=== PATIENT | male | born 1965 | race Caucasian/White ===

== ENCOUNTER 2018-05-02 09:10 | Day surgery (SDC) | payer MEDICAID ==
[~2018-05-02 09:10] MED LIST: CETI-102 PO; DOXY100C43 PO; FERR-119 PO; LISI-600 PO; MUPI22OI30 TOP
[2018-05-02] MEDS ORDERED: LIDOcaine/PRILOcaine 5gm cream TP ONE (11:02)
[2018-05-02] MEDS ORDERED: LISI40TA4 PO (11:50)
[2018-05-02] MEDS ORDERED: HYDR-3686 PO (11:51)
== END 2018-05-02 12:01 | disposition home or self-care (01) ==
LOC: WOUND CARE 09:10
PROVIDERS: ATTEND Surgery
DX: L98.422 Non-pressure chronic ulcer of back with fat layer exposed (principal); L72.3 Sebaceous cyst; I10 Essential (primary) hypertension; G89.29 Other chronic pain; Z79.899 Other long term (current) drug therapy
CPT/HCPCS: 97597; A6021; A6212

== ENCOUNTER 2018-05-09 09:05 | Outpatient (CLI) | payer MEDICAID ==
[~2018-05-09 09:05] MED LIST changes: -CETI-102 PO; -DOXY100C43 PO; -FERR-119 PO; +HYDR-3686 PO; -LISI-600 PO; +LISI40TA4 PO; -MUPI22OI30 TOP
== END 2018-05-09 10:29 | disposition home or self-care (01) ==
LOC: WOUND CARE 09:05 → EDSTATUS 09:30 → WOUND CARE 10:29
PROVIDERS: ATTEND Surgery
DX: L98.422 Non-pressure chronic ulcer of back with fat layer exposed (principal); L72.3 Sebaceous cyst; I10 Essential (primary) hypertension; G89.29 Other chronic pain; Z79.899 Other long term (current) drug therapy
CPT/HCPCS: 99215; A6021; A6212

== ENCOUNTER 2018-09-07 09:47 | Emergency (ER) | payer MEDICAID ==
[~2018-09-07] VITALS: Ht 185.4 cm; Wt 90.5 kg
[2018-09-07 10:10] VITALS: BP 120/65
[2018-09-07] MEDS ORDERED: GUAI237S46 PO (11:46)
[2018-09-07] MEDS ORDERED: AZIT250T83 PO (11:46)
[2018-09-07] MEDS ORDERED: buprenorphine/naloxone 8mg/2mg SL tablet SL PRN (13:10)
== END 2018-09-07 13:26 | disposition home or self-care (01) ==
LOC: ER 09:47
DX: J20.9 Acute bronchitis, unspecified (principal); I10 Essential (primary) hypertension; G89.29 Other chronic pain; F11.90 Opioid use, unspecified, uncomplicated; Z88.6 Allergy status to analgesic agent; Z60.2 Problems related to living alone; Z59.0 Homelessness; Z56.0 Unemployment, unspecified; Z79.899 Other long term (current) drug therapy
CPT/HCPCS: 99283

== ENCOUNTER 2019-05-18 10:56 | Emergency (ER) | payer MEDICAID ==
[~2019-05-18] VITALS: Ht 188 cm; Wt 79.5 kg
[2019-05-18 10:59] VITALS: BP 132/83
[2019-05-18] MEDS ORDERED: PENI500T2 PO (12:45)
== END 2019-05-18 13:03 | disposition home or self-care (01) ==
LOC: ER 10:57
DX: S02.5XXA Fracture of tooth (traumatic), initial encounter for closed fracture (principal); K02.9 Dental caries, unspecified; I10 Essential (primary) hypertension; G89.29 Other chronic pain; Z86.14 Personal history of Methicillin resistant Staphylococcus aureus infection; Z98.890 Other specified postprocedural states; Z56.0 Unemployment, unspecified; Z59.0 Homelessness; Z88.5 Allergy status to narcotic agent; Z79.2 Long term (current) use of antibiotics; Z79.899 Other long term (current) drug therapy; X58.XXXA Exposure to other specified factors, initial encounter; Y93.89 Activity, other specified; Y92.89 Other specified places as the place of occurrence of the external cause; Y99.8 Other external cause status
CPT/HCPCS: 99283

== ENCOUNTER 2019-05-28 17:21 | Emergency (ER) | payer MEDICAID ==
[~2019-05-28 17:21] MED LIST changes: +PENI500T2 PO
[2019-05-28] MEDS ORDERED: PENI500T2 PO (23:07)
== END 2019-05-28 18:52 | disposition left against medical advice (07) ==
LOC: ER 17:22
DX: K08.89 Other specified disorders of teeth and supporting structures (principal); Z53.21 Procedure and treatment not carried out due to patient leaving prior to being seen by health care provider

== ENCOUNTER 2019-05-28 22:04 | Emergency (ER) | payer MEDICAID ==
[~2019-05-28] VITALS: Ht 185.4 cm; Wt 79.5 kg
[2019-05-28 22:07] VITALS: BP 161/84
[2019-05-28] MEDS ORDERED: PENI500T2 PO (23:07)
[2019-05-28] MEDS ORDERED: penicillin V potassium 500mg tablet PO ONE (23:10)
== END 2019-05-28 23:22 | disposition home or self-care (01) ==
LOC: ER 22:06
DX: K02.9 Dental caries, unspecified (principal); K08.89 Other specified disorders of teeth and supporting structures; I10 Essential (primary) hypertension; G89.29 Other chronic pain; Z59.0 Homelessness; Z56.0 Unemployment, unspecified; Z98.890 Other specified postprocedural states; Z86.14 Personal history of Methicillin resistant Staphylococcus aureus infection; Z88.5 Allergy status to narcotic agent; Z79.899 Other long term (current) drug therapy
CPT/HCPCS: 99283

== ENCOUNTER 2019-06-25 09:30 | Emergency (ER) | payer MEDICAID ==
[~2019-06-25] VITALS: Ht 185.4 cm; Wt 79.5 kg
[~2019-06-25 09:30] MED LIST changes: -PENI500T2 PO
[2019-06-25 10:21] LABS: BASOPHILS # (AUTO) 0.1 X10'3 (0-0.2); BASOPHILS % (AUTO) 0.7 % (0-1); EOSINOPHILS # (AUTO) 0.1 X10'3 (0-0.9); EOSINOPHILS % (AUTO) 1.2 % (0-6); HEMATOCRIT 38.2 % (42.0-52.0); HEMOGLOBIN 13.1 g/dl (14.0-17.9); LYMPHOCYTES # (AUTO) 1.8 X10'3 (1.1-4.8); LYMPHOCYTES % (AUTO) 19.3 % (21-51); MEAN CORPUSCULAR HEMOGLOBIN 30.4 PG (27.0-31.0); MEAN CORPUSCULAR HGB CONC 34.3 g/dL (33.0-36.5); MEAN CORPUSCULAR VOLUME 88.6 FL (78-98); MEAN PLATELET VOLUME 8.4 FL (7.4-10.4); MONOCYTES # (AUTO) 0.8 X10'3 (0-0.9); MONOCYTES % (AUTO) 8.5 % (2-12); NEUTROPHILS # (AUTO) 6.7 X10'3 (1.8-7.7); NEUTROPHILS % (AUTO) 70.3 % (42-75); PLATELET COUNT 186 X10'3 (140-440); RED BLOOD COUNT 4.31 X10'6 (4.70-6.10); RED CELL DISTRIBUTION WIDTH 13.6 % (11.5-14.5); WHITE BLOOD COUNT 9.5 X10'3 (4.5-11.0)
[2019-06-25] MEDS ORDERED: lisinopril 10 MG tablet PO ONE (10:25)
[2019-06-25 10:40] LABS: PARTIAL THROMBOPLASTIN TIME 26 SECONDS (22-32)
[2019-06-25 10:41] LABS: ALANINE AMINOTRANSFERASE 37 U/L (12-78); ALBUMIN 3.9 G/DL (3.4-5.0); ALBUMIN/GLOBULIN RATIO 1.2 (1.1-1.5); ALKALINE PHOSPHATASE 56 IU/L (46-116); ANION GAP 7 (8-16); ASPARTATE AMINO TRANSFERASE 69 U/L (10-37); BILIRUBIN,TOTAL 0.5 MG/DL (0.1-1.0); BLOOD UREA NITROGEN 16 MG/DL (7-18); BUN/CREATININE RATIO 14.5 (5.4-32.0); CALCIUM 9.1 MG/DL (8.5-10.1); CHLORIDE 103 MMOL/L (99-107); GLUCOSE 99 MG/DL (70-104); POTASSIUM 4.2 MMOL/L (3.5-5.1); SODIUM 138 MMOL/L (135-145); TOTAL CARBON DIOXIDE 28.1 MMOL/L (24-32); TOTAL PROTEIN 7.2 G/DL (6.4-8.2); eGFR 69 ML/MIN
--- NOTE | 2019-06-25 12:00 | NUR ---
PT was in the restroom well over half an hour. I was directed by the charge master coordinator to check on him and check his bags. After checking on him, I went through his bags. My initial search found; a meth pipe, suboxone & meth. Security was called and the drugs were collected. Pt was asked by multiple staff as to whether or not he used in the bathroom. He declined everytime.
--- NOTE | 2019-06-25 12:11 | NUR ---
PT REPORTS HE ALREADY WENT TOT HE BATHROOM AND DID NOT GIVE URINE SAMPLE. PT PROVIDED WITH URINAL AND GLASS OF WATER.
--- NOTE | 2019-06-25 12:35 | NUR ---
Spoke with FANNY soriano regarding patients irregular heart rhythm of janiny. EKG in progress. Vital signs are as follows 105 beats/min, 186/108 mmHg, 17 breaths/min, 99 % RA.
[2019-06-25 13:33] LABS: CLARITY,URINE CLEAR (Clear); COLOR,URINE YELLOW (Yellow); GLUCOSE, URINE NEGATIVE (Neg); KETONES,URINE TRACE mg/dl (Neg); LEUKOCYTE ESTERASE ,URINE NEGATIVE (Neg); NITRITES, URINE NEGATIVE (Neg); OCCULT BLOOD,URINE SMALL (Neg); PROTEIN,URINE TRACE mg/dl (Neg); UROBILINOGEN,URINE 0.2 E.U/dL (0.2-1.0)
[2019-06-25 13:36] LABS: UA COLLECTION TYPE VOIDED
[2019-06-25 13:48] LABS: SPERM MODERATE /HPF (NEGATIVE); URINE AMPHETAMINE SCREEN POSITIVE (Neg); URINE BARBITUATE SCREEN NEGATIVE (Neg); URINE BENZODIAZEPINES SCREEN NEGATIVE (Neg); URINE CANNABINOID SCREEN NEGATIVE (Neg); URINE COCAINE SCREEN NEGATIVE (Neg); URINE METHADONE SCREEN NEGATIVE (Neg); URINE OPIATE SCREEN NEGATIVE (Neg); URINE PHENCYCLIDINE SCREEN NEGATIVE (Neg)
[2019-06-25 13:49] LABS: SQUAMOUS EPITHELIAL CELL,UR FEW /LPF (FEW); WBC,URINE 0-4 /HPF (0-4)
[2019-06-25 13:50] LABS: BACTERIA,URINE FEW /HPF (Neg)
[2019-06-25] MEDS ORDERED: hyDRALAzine 10mg tablet PO ONE (14:25)
[2019-06-25] MEDS ORDERED: normal saline 1000ML IV soln IVB ONE (14:45)
[2019-06-25] MEDS ORDERED: LISI40TA4 PO (16:18)
[2019-06-25 17:00] VITALS: BP 177/107
== END 2019-06-25 17:03 | disposition home or self-care (01) ==
LOC: ER 09:31
DX: T68.XXXA Hypothermia, initial encounter (principal); I10 Essential (primary) hypertension; F19.10 Other psychoactive substance abuse, uncomplicated; G89.29 Other chronic pain; R79.1 Abnormal coagulation profile; F11.90 Opioid use, unspecified, uncomplicated; Z98.890 Other specified postprocedural states; Z60.2 Problems related to living alone; Z59.0 Homelessness; Z56.0 Unemployment, unspecified; Z88.6 Allergy status to analgesic agent; Z79.899 Other long term (current) drug therapy; Z86.718 Personal history of other venous thrombosis and embolism; X31.XXXA Exposure to excessive natural cold, initial encounter
CPT/HCPCS: 36415; 80053; 80305; 81001; 83880; 85025; 85610; 85730; 93005; 99284; J7030

== ENCOUNTER 2019-08-06 11:05 | Emergency (ER) | payer MEDICAID ==
[~2019-08-06] VITALS: Ht 185.4 cm; Wt 82.0 kg
[2019-08-06 11:26] VITALS: BP 170/92
[2019-08-06] MEDS ORDERED: buprenorphine/naloxone 8mg/2mg SL tablet SL STA (13:07)
[2019-08-06] MEDS ORDERED: buprenorphine/naloxone 8MG-2MG SUBlingual film SL STA (14:47)
[2019-08-06] MEDS ORDERED: BUPR1TAB36 SL (14:52)
== END 2019-08-06 15:01 | disposition home or self-care (01) ==
LOC: ER 11:06
DX: F11.90 Opioid use, unspecified, uncomplicated (principal); Z76.0 Encounter for issue of repeat prescription; I10 Essential (primary) hypertension; G89.29 Other chronic pain; Z59.0 Homelessness; Z56.0 Unemployment, unspecified; Z86.14 Personal history of Methicillin resistant Staphylococcus aureus infection; Z88.5 Allergy status to narcotic agent; Z79.899 Other long term (current) drug therapy
CPT/HCPCS: 99283

== ENCOUNTER 2019-08-10 19:41 | Emergency (ER) | payer MEDICAID ==
[~2019-08-10] VITALS: Ht 185.4 cm; Wt 79.5 kg
[~2019-08-10 19:41] MED LIST changes: +BUPR1TAB36 SL
--- NOTE | 2019-08-10 19:47 | NUR ---
PT IN BATHROOM WHEN CALLED BACK TO TRIAGE
[2019-08-10 19:51] VITALS: BP 140/85
[2019-08-10] MEDS ORDERED: AMOX-422 PO (20:32)
== END 2019-08-10 20:44 | disposition home or self-care (01) ==
LOC: ER 19:41
DX: J40 Bronchitis, not specified as acute or chronic (principal); J06.9 Acute upper respiratory infection, unspecified; I10 Essential (primary) hypertension; G89.29 Other chronic pain; Z79.2 Long term (current) use of antibiotics; Z79.899 Other long term (current) drug therapy; Z86.14 Personal history of Methicillin resistant Staphylococcus aureus infection; Z60.2 Problems related to living alone; Z59.0 Homelessness; Z56.0 Unemployment, unspecified
CPT/HCPCS: 99283

== ENCOUNTER 2019-08-27 16:17 | Emergency (ER) | payer MEDICAID ==
[~2019-08-27] VITALS: Ht 185.4 cm; Wt 81.0 kg
[2019-08-27] MEDS ORDERED: MUPI22OI30 TOP (16:48)
[2019-08-27 16:58] VITALS: BP 132/71
== END 2019-08-27 17:01 | disposition home or self-care (01) ==
LOC: ER 16:19
DX: J34.89 Other specified disorders of nose and nasal sinuses (principal); I10 Essential (primary) hypertension; G89.29 Other chronic pain; Z59.0 Homelessness; Z56.0 Unemployment, unspecified; Z86.14 Personal history of Methicillin resistant Staphylococcus aureus infection; Z88.5 Allergy status to narcotic agent; Z79.899 Other long term (current) drug therapy
CPT/HCPCS: 99283

== ENCOUNTER 2019-09-08 20:12 | Emergency (ER) | payer MEDICAID ==
--- NOTE | 2019-09-08 20:20 | NUR ---
Pt reportedly told triage he will return in the morning and does not want to be seen tonight.
== END 2019-09-08 20:55 | disposition left against medical advice (07) ==
LOC: ER 20:13
DX: J00 Acute nasopharyngitis [common cold] (principal); Z53.21 Procedure and treatment not carried out due to patient leaving prior to being seen by health care provider

== ENCOUNTER 2019-09-10 02:10 | Emergency (ER) | payer MEDICAID ==
[~2019-09-10] VITALS: Ht 185.4 cm; Wt 88.6 kg
[2019-09-10 02:27] VITALS: BP 183/117
--- NOTE | 2019-09-10 02:38 | NUR ---
PT IS USING A TABLET THE ENTIRE TIME I AM ASKING QUESTIONS AND DOING EXAM/HISTORY. NO DISTRESS NOTED.
[2019-09-10] MEDS ORDERED: amox tr/potassium clavulanate 875/125mg TAB PO ONE (03:00)
[2019-09-10] MEDS ORDERED: naproxen 500mg tablet PO ONE (03:00)
[2019-09-10] MEDS ORDERED: AMOX-422 PO (03:04)
[2019-09-10] MEDS ORDERED: NAPR-56 PO (03:04)
[2019-09-10] MEDS: acetaminophen 325mg tablet PO ONE ×2 (03:11→03:13)
== END 2019-09-10 03:33 | disposition home or self-care (01) ==
LOC: ER 02:11
DX: K04.7 Periapical abscess without sinus (principal); K08.89 Other specified disorders of teeth and supporting structures; I10 Essential (primary) hypertension; G89.29 Other chronic pain; F15.90 Other stimulant use, unspecified, uncomplicated; F11.90 Opioid use, unspecified, uncomplicated; Z98.890 Other specified postprocedural states; Z86.14 Personal history of Methicillin resistant Staphylococcus aureus infection; Z60.2 Problems related to living alone; Z59.0 Homelessness; Z56.0 Unemployment, unspecified; Z88.5 Allergy status to narcotic agent; Z79.2 Long term (current) use of antibiotics; Z79.899 Other long term (current) drug therapy
CPT/HCPCS: 99283

== ENCOUNTER 2019-09-19 15:52 | Emergency (ER) | payer MEDICAID ==
[~2019-09-19] VITALS: Ht 188 cm; Wt 80.0 kg
[~2019-09-19 15:52] MED LIST changes: +AMOX-422 PO; +NAPR-56 PO
--- NOTE | 2019-09-19 16:18 | NUR ---
pt called into triage and pt said he had to leave
[2019-09-19 17:13] VITALS: BP 144/89
[2019-09-19] MEDS ORDERED: ketorolac trometh inj. 60 MG/2 ML VIAL IM ONE (19:25)
== END 2019-09-19 19:58 | disposition home or self-care (01) ==
LOC: ER 15:56
DX: M79.18 Myalgia, other site (principal); R06.00 Dyspnea, unspecified; I10 Essential (primary) hypertension; G89.29 Other chronic pain; F15.90 Other stimulant use, unspecified, uncomplicated; F11.90 Opioid use, unspecified, uncomplicated; Z86.14 Personal history of Methicillin resistant Staphylococcus aureus infection; Z86.2 Personal history of diseases of the blood and blood-forming organs and certain disorders involving the immune mechanism; Z59.0 Homelessness; Z56.0 Unemployment, unspecified; Z88.1 Allergy status to other antibiotic agents; Z88.5 Allergy status to narcotic agent; Z79.899 Other long term (current) drug therapy
CPT/HCPCS: 96372; 99283; J1885

== ENCOUNTER 2019-09-24 15:45 | Emergency (ER) | payer MEDICAID ==
[~2019-09-24] VITALS: Ht 185.4 cm; Wt 80.0 kg
[~2019-09-24 15:45] MED LIST changes: -AMOX-422 PO
[2019-09-24 15:47] VITALS: BP 180/104
[2019-09-24] MEDS ORDERED: DIPH25CA83 PO (16:04)
[2019-09-24] MEDS ORDERED: FAMO10TA41 PO (16:04)
== END 2019-09-24 16:34 | disposition home or self-care (01) ==
LOC: ER 15:46
DX: L23.7 Allergic contact dermatitis due to plants, except food (principal); I10 Essential (primary) hypertension; G89.29 Other chronic pain; F15.90 Other stimulant use, unspecified, uncomplicated; F11.90 Opioid use, unspecified, uncomplicated; Z59.0 Homelessness; Z56.0 Unemployment, unspecified; Z98.890 Other specified postprocedural states; Z86.14 Personal history of Methicillin resistant Staphylococcus aureus infection; Z88.1 Allergy status to other antibiotic agents; Z88.5 Allergy status to narcotic agent; Z79.899 Other long term (current) drug therapy
CPT/HCPCS: 99283

== ENCOUNTER 2019-10-03 06:30 | Emergency (ER) | payer MEDICAID ==
[~2019-10-03] VITALS: Ht 185.4 cm; Wt 82.2 kg
[~2019-10-03 06:30] MED LIST changes: -BUPR1TAB36 SL; +BUPR1TAB45 SL; +CLOT30CR24 TOP; +DIPH25CA83 PO; +FAMO10TA41 PO
[2019-10-03] MEDS ORDERED: naproxen 500mg tablet PO ONE (07:50)
[2019-10-03 07:52] VITALS: BP 168/95
== END 2019-10-03 09:24 | disposition home or self-care (01) ==
LOC: ER 06:30
DX: G89.29 Other chronic pain (principal); M54.6 Pain in thoracic spine; I10 Essential (primary) hypertension; F15.90 Other stimulant use, unspecified, uncomplicated; F11.90 Opioid use, unspecified, uncomplicated; F32.9 Major depressive disorder, single episode, unspecified; Z86.14 Personal history of Methicillin resistant Staphylococcus aureus infection; Z59.0 Homelessness; Z98.890 Other specified postprocedural states; Z60.2 Problems related to living alone; Z56.0 Unemployment, unspecified; Z86.2 Personal history of diseases of the blood and blood-forming organs and certain disorders involving the immune mechanism; Z88.1 Allergy status to other antibiotic agents; Z88.5 Allergy status to narcotic agent; Z79.899 Other long term (current) drug therapy
CPT/HCPCS: 99282

== ENCOUNTER 2019-10-07 00:52 | Emergency (ER) | payer MEDICAID ==
[~2019-10-07] VITALS: Ht 185.4 cm; Wt 82.8 kg
[2019-10-07 00:57] VITALS: BP 140/75
[2019-10-07] MEDS ORDERED: buprenorphine/naloxone 8MG-2MG SUBlingual film SL SCH (02:55)
[2019-10-07] MEDS ORDERED: buprenorphine/naloxone 8MG-2MG SUBlingual film SL ONE (02:55)
== END 2019-10-07 03:11 | disposition home or self-care (01) ==
LOC: ER 00:53
DX: F11.10 Opioid abuse, uncomplicated (principal); I10 Essential (primary) hypertension; G89.29 Other chronic pain; F32.9 Major depressive disorder, single episode, unspecified; F15.90 Other stimulant use, unspecified, uncomplicated; Z86.14 Personal history of Methicillin resistant Staphylococcus aureus infection; Z98.890 Other specified postprocedural states; Z60.2 Problems related to living alone; Z59.0 Homelessness; Z56.0 Unemployment, unspecified; Z88.1 Allergy status to other antibiotic agents; Z88.5 Allergy status to narcotic agent; Z79.2 Long term (current) use of antibiotics; Z79.899 Other long term (current) drug therapy
CPT/HCPCS: 99283

== ENCOUNTER 2019-10-08 21:23 | Emergency (ER) | payer MEDICAID ==
[~2019-10-08] VITALS: Ht 185.4 cm; Wt 79.5 kg
[2019-10-08] MEDS ORDERED: buprenorphine/naloxone 8MG-2MG SUBlingual film SL STA (22:01)
[2019-10-08 22:24] VITALS: BP 125/78
== END 2019-10-08 22:25 | disposition home or self-care (01) ==
LOC: ER 21:24
DX: F11.10 Opioid abuse, uncomplicated (principal); I10 Essential (primary) hypertension; G89.29 Other chronic pain; F15.90 Other stimulant use, unspecified, uncomplicated; F32.9 Major depressive disorder, single episode, unspecified; Z86.14 Personal history of Methicillin resistant Staphylococcus aureus infection; Z98.890 Other specified postprocedural states; Z60.2 Problems related to living alone; Z59.0 Homelessness; Z56.0 Unemployment, unspecified
CPT/HCPCS: 99283

== ENCOUNTER 2019-10-21 21:03 | Emergency (ER) | payer MEDICAID ==
[~2019-10-21] VITALS: Ht 185.4 cm; Wt 88.6 kg
[~2019-10-21 21:03] MED LIST changes: -NAPR-56 PO
[2019-10-21 21:11] VITALS: BP 160/108
[2019-10-21] MEDS ORDERED: HYDR28CR14 TOP (21:42)
[2019-10-21] MEDS ORDERED: PERM60CR19 TOP (21:42)
== END 2019-10-21 21:53 | disposition home or self-care (01) ==
LOC: ER 21:21
DX: B85.1 Pediculosis due to Pediculus humanus corporis (principal); I10 Essential (primary) hypertension; G89.29 Other chronic pain; F15.90 Other stimulant use, unspecified, uncomplicated; F11.90 Opioid use, unspecified, uncomplicated; Z59.0 Homelessness; Z56.0 Unemployment, unspecified; Z98.890 Other specified postprocedural states; Z86.14 Personal history of Methicillin resistant Staphylococcus aureus infection; Z88.1 Allergy status to other antibiotic agents; Z88.5 Allergy status to narcotic agent; Z79.899 Other long term (current) drug therapy
CPT/HCPCS: 99283

== ENCOUNTER 2019-11-01 00:04 | Emergency (ER) | payer MEDICAID ==
[~2019-11-01] VITALS: Ht 185.4 cm; Wt 88.0 kg
[~2019-11-01 00:04] MED LIST changes: +HYDR28CR14 TOP; +PERM60CR19 TOP
[2019-11-01 00:21] VITALS: BP 138/97
[2019-11-01] MEDS ORDERED: PENI500T2 PO (00:35)
== END 2019-11-01 00:44 | disposition home or self-care (01) ==
LOC: ER 00:04
DX: K02.9 Dental caries, unspecified (principal); I10 Essential (primary) hypertension; G89.29 Other chronic pain; F32.9 Major depressive disorder, single episode, unspecified; F15.90 Other stimulant use, unspecified, uncomplicated; F11.90 Opioid use, unspecified, uncomplicated; Z86.2 Personal history of diseases of the blood and blood-forming organs and certain disorders involving the immune mechanism; Z86.14 Personal history of Methicillin resistant Staphylococcus aureus infection; Z98.890 Other specified postprocedural states; Z60.2 Problems related to living alone; Z59.0 Homelessness; Z56.0 Unemployment, unspecified; Z88.1 Allergy status to other antibiotic agents; Z88.5 Allergy status to narcotic agent; Z79.899 Other long term (current) drug therapy
CPT/HCPCS: 99283

== ENCOUNTER 2019-12-07 23:05 | Emergency (ER) | payer MEDICAID ==
[~2019-12-07] VITALS: Ht 185.4 cm; Wt 82.0 kg
[~2019-12-07 23:05] MED LIST changes: -PERM60CR19 TOP
[2019-12-07 23:12] VITALS: BP 171/103
[2019-12-08] MEDS ORDERED: LISI40TA4 PO (00:04)
== END 2019-12-08 00:18 | disposition home or self-care (01) ==
LOC: ER 23:06
DX: I10 Essential (primary) hypertension (principal); Z76.0 Encounter for issue of repeat prescription; G89.29 Other chronic pain; F32.9 Major depressive disorder, single episode, unspecified; F15.90 Other stimulant use, unspecified, uncomplicated; F11.90 Opioid use, unspecified, uncomplicated; Z98.890 Other specified postprocedural states; Z86.14 Personal history of Methicillin resistant Staphylococcus aureus infection; Z56.0 Unemployment, unspecified; Z59.0 Homelessness; Z88.1 Allergy status to other antibiotic agents; Z88.5 Allergy status to narcotic agent; Z79.899 Other long term (current) drug therapy
CPT/HCPCS: 99281

== ENCOUNTER 2020-02-21 21:44 | Emergency (ER) | payer MEDICAID ==
[~2020-02-21] VITALS: Ht 185.4 cm; Wt 102.3 kg
[2020-02-21 21:57] VITALS: BP 137/83
[2020-02-22] MEDS ORDERED: penicillin V potassium 500mg tablet PO ONE (01:30)
[2020-02-22] MEDS ORDERED: PENI500T2 PO (01:33)
== END 2020-02-22 01:55 | disposition home or self-care (01) ==
LOC: ER 21:48
DX: K04.7 Periapical abscess without sinus (principal); I10 Essential (primary) hypertension; G89.29 Other chronic pain; F15.90 Other stimulant use, unspecified, uncomplicated; Z59.0 Homelessness; Z56.0 Unemployment, unspecified; Z98.890 Other specified postprocedural states; Z86.14 Personal history of Methicillin resistant Staphylococcus aureus infection; Z88.1 Allergy status to other antibiotic agents; Z88.5 Allergy status to narcotic agent; Z79.899 Other long term (current) drug therapy
CPT/HCPCS: 99283

== ENCOUNTER 2021-09-01 23:37 | Emergency (ER) | payer MEDICAID ==
[~2021-09-01] VITALS: Ht 185.4 cm; Wt 100.0 kg
[~2021-09-01 23:37] MED LIST changes: +LISI40TA13 PO; -LISI40TA4 PO
[2021-09-01 23:46] VITALS: BP 165/100
[2021-09-01] MEDS ORDERED: LISI40TA13 PO (23:52)
== END 2021-09-02 01:27 | disposition home or self-care (01) ==
LOC: ER 23:38
DX: I10 Essential (primary) hypertension (principal); G89.29 Other chronic pain; F15.90 Other stimulant use, unspecified, uncomplicated; Z76.0 Encounter for issue of repeat prescription; Z86.14 Personal history of Methicillin resistant Staphylococcus aureus infection; Z86.2 Personal history of diseases of the blood and blood-forming organs and certain disorders involving the immune mechanism; Z56.0 Unemployment, unspecified; Z59.00 Homelessness unspecified; Z88.1 Allergy status to other antibiotic agents; Z88.5 Allergy status to narcotic agent; Z88.8 Allergy status to other drugs, medicaments and biological substances; Z79.899 Other long term (current) drug therapy
CPT/HCPCS: 99281

== ENCOUNTER 2021-09-08 20:04 | Emergency (ER) | payer MEDICAID ==
[~2021-09-08] VITALS: Ht 182.9 cm; Wt 100.0 kg
[2021-09-08 20:32] VITALS: BP 196/113
== END 2021-09-08 22:45 | disposition left against medical advice (07) ==
LOC: ER 20:05
DX: K92.1 Melena (principal); Z53.21 Procedure and treatment not carried out due to patient leaving prior to being seen by health care provider

== ENCOUNTER 2022-05-02 22:25 | Emergency (ER) | payer MEDICAID ==
[~2022-05-02] VITALS: Ht 185.4 cm; Wt 81.8 kg
[~2022-05-02 22:25] MED LIST changes: +IBUP-1985 PO
[2022-05-02 23:10] VITALS: BP_DIAS 121
[2022-05-02] MEDS ORDERED: lisinopril 10 MG tablet PO ONE (23:40)
[2022-05-02] MEDS ORDERED: LISI40TA13 PO (23:40)
[2022-05-03 00:09] VITALS: BP_SYST 205
== END 2022-05-03 00:13 | disposition home or self-care (01) ==
LOC: ER 22:26
DX: I10 Essential (primary) hypertension (principal); Z76.0 Encounter for issue of repeat prescription; D64.9 Anemia, unspecified; G89.29 Other chronic pain; M54.9 Dorsalgia, unspecified; F15.10 Other stimulant abuse, uncomplicated; Z59.00 Homelessness unspecified; Z56.0 Unemployment, unspecified; Z88.1 Allergy status to other antibiotic agents; Z88.5 Allergy status to narcotic agent; Z79.899 Other long term (current) drug therapy
CPT/HCPCS: 99283

== ENCOUNTER 2022-06-01 00:34 | Emergency (ER) | payer MEDICAID ==
[~2022-06-01] VITALS: Ht 185.4 cm; Wt 81.8 kg
[2022-06-01 00:40] VITALS: BP_DIAS 113
[2022-06-01] MEDS ORDERED: lisinopril 10 MG tablet PO ONE (00:55)
[2022-06-01] MEDS ORDERED: LISI40TA13 PO (00:56)
[2022-06-01 01:07] VITALS: BP_SYST 172
--- NOTE | 2022-06-01 01:08 | NUR ---
PO MED GIVEN
[2022-06-02] MEDS ORDERED: DICL20GE TOP (23:39)
[2022-06-02] MEDS ORDERED: NAPR-56 PO (23:39)
== END 2022-06-01 01:10 | disposition home or self-care (01) ==
LOC: ER 00:35
DX: R51.9 Headache, unspecified (principal); Z76.0 Encounter for issue of repeat prescription; I10 Essential (primary) hypertension; G89.29 Other chronic pain; M54.50 Low back pain, unspecified; F15.20 Other stimulant dependence, uncomplicated; Z88.1 Allergy status to other antibiotic agents; Z88.5 Allergy status to narcotic agent; Z91.041 Radiographic dye allergy status; Z56.0 Unemployment, unspecified; Z59.00 Homelessness unspecified
CPT/HCPCS: 99283

== ENCOUNTER 2022-06-02 23:09 | Emergency (ER) | payer MEDICAID ==
[~2022-06-02] VITALS: Ht 185.4 cm; Wt 84.1 kg
[2022-06-02 23:13] VITALS: BP 200/116
[2022-06-02] MEDS ORDERED: NAPR-56 PO (23:39)
[2022-06-02] MEDS ORDERED: DICL20GE TOP (23:39)
== END 2022-06-03 01:12 | disposition home or self-care (01) ==
LOC: ER 23:11
DX: S56.911A Strain of unspecified muscles, fascia and tendons at forearm level, right arm, initial encounter (principal); I10 Essential (primary) hypertension; G89.29 Other chronic pain; M54.50 Low back pain, unspecified; F15.20 Other stimulant dependence, uncomplicated; Z88.1 Allergy status to other antibiotic agents; Z88.5 Allergy status to narcotic agent; Z91.041 Radiographic dye allergy status; Z56.0 Unemployment, unspecified; Z59.00 Homelessness unspecified; X58.XXXA Exposure to other specified factors, initial encounter; Y93.89 Activity, other specified; Y92.89 Other specified places as the place of occurrence of the external cause; Y99.8 Other external cause status
CPT/HCPCS: 73080; 99283

== ENCOUNTER 2022-06-24 05:46 | Emergency (ER) | payer MEDICAID ==
[~2022-06-24] VITALS: Ht 185.4 cm; Wt 80.5 kg
[~2022-06-24 05:46] MED LIST changes: +DICL20GE TOP; +NAPR-56 PO
[2022-06-24 05:57] VITALS: BP 174/100
[2022-06-24] MEDS ORDERED: AZIT250T PO (06:54)
[2022-06-24] MEDS ORDERED: azithromycin 250mg tablet PO ONE (06:55)
== END 2022-06-24 07:45 | disposition home or self-care (01) ==
LOC: ER 05:46
DX: J06.9 Acute upper respiratory infection, unspecified (principal); Z91.041 Radiographic dye allergy status; Z88.1 Allergy status to other antibiotic agents; Z88.5 Allergy status to narcotic agent
CPT/HCPCS: 99283

== ENCOUNTER 2022-07-26 15:59 | Emergency (ER) | payer MEDICAID ==
[~2022-07-26] VITALS: Ht 185.4 cm; Wt 80.0 kg
[~2022-07-26 15:59] MED LIST changes: -NAPR-56 PO
[2022-07-26] MEDS ORDERED: LISI40TA13 PO (17:28)
[2022-07-26 17:41] VITALS: BP 153/113
== END 2022-07-26 17:44 | disposition home or self-care (01) ==
LOC: ER 16:00
DX: I10 Essential (primary) hypertension (principal); Z76.0 Encounter for issue of repeat prescription; G89.29 Other chronic pain; M54.2 Cervicalgia; F15.10 Other stimulant abuse, uncomplicated; Z86.2 Personal history of diseases of the blood and blood-forming organs and certain disorders involving the immune mechanism; Z59.00 Homelessness unspecified; Z56.0 Unemployment, unspecified; Z88.1 Allergy status to other antibiotic agents; Z88.5 Allergy status to narcotic agent; Z79.899 Other long term (current) drug therapy; Z79.1 Long term (current) use of non-steroidal anti-inflammatories (NSAID); Z79.2 Long term (current) use of antibiotics
CPT/HCPCS: 99281

== ENCOUNTER 2022-08-03 04:21 | Emergency (ER) | payer MEDICAID ==
[~2022-08-03] VITALS: Ht 182.9 cm; Wt 70.5 kg
[2022-08-03 04:34] VITALS: BP 170/84
== END 2022-08-03 08:17 | disposition left against medical advice (07) ==
LOC: ER 04:21
DX: R05.9 Cough, unspecified (principal); R09.89 Other specified symptoms and signs involving the circulatory and respiratory systems; Z53.21 Procedure and treatment not carried out due to patient leaving prior to being seen by health care provider

== ENCOUNTER 2022-08-04 01:15 | Emergency (ER) | payer MEDICAID ==
[~2022-08-04] VITALS: Ht 193 cm; Wt 72.7 kg
[2022-08-04 02:27] VITALS: BP 175/98
== END 2022-08-04 06:57 | disposition left against medical advice (07) ==
LOC: ER 01:16
DX: M79.671 Pain in right foot (principal); Z53.21 Procedure and treatment not carried out due to patient leaving prior to being seen by health care provider

== ENCOUNTER 2022-08-04 14:10 | Emergency (ER) | payer MEDICAID ==
[~2022-08-04] VITALS: Ht 185.4 cm; Wt 38.6 kg
[2022-08-04 15:16] VITALS: BP 203/111
== END 2022-08-04 17:46 | disposition left against medical advice (07) ==
LOC: ER 14:11
DX: S01.81XA Laceration without foreign body of other part of head, initial encounter (principal); Z53.21 Procedure and treatment not carried out due to patient leaving prior to being seen by health care provider; I10 Essential (primary) hypertension; G89.29 Other chronic pain; M54.9 Dorsalgia, unspecified; F32.A Depression, unspecified; Z59.00 Homelessness unspecified; Z56.0 Unemployment, unspecified; F15.10 Other stimulant abuse, uncomplicated; Z88.1 Allergy status to other antibiotic agents; Z88.5 Allergy status to narcotic agent; W18.39XA Other fall on same level, initial encounter; Y93.89 Activity, other specified; Y92.89 Other specified places as the place of occurrence of the external cause; Y99.8 Other external cause status

== ENCOUNTER 2022-08-04 21:33 | Emergency (ER) | payer MEDICAID ==
[~2022-08-04] VITALS: Ht 185.4 cm; Wt 84.1 kg
[2022-08-05 01:17] VITALS: BP 188/79
[2022-08-05] MEDS ORDERED: acetaminophen 325mg tablet PO ONE (02:00)
== END 2022-08-05 02:32 | disposition home or self-care (01) ==
LOC: ER 21:34
DX: M54.2 Cervicalgia (principal); S01.01XA Laceration without foreign body of scalp, initial encounter; I10 Essential (primary) hypertension; G89.29 Other chronic pain; M54.50 Low back pain, unspecified; Z88.1 Allergy status to other antibiotic agents; Z88.5 Allergy status to narcotic agent; Z91.041 Radiographic dye allergy status; Z59.00 Homelessness unspecified; Z56.0 Unemployment, unspecified; W19.XXXA Unspecified fall, initial encounter; Y93.89 Activity, other specified; Y92.89 Other specified places as the place of occurrence of the external cause; Y99.8 Other external cause status
CPT/HCPCS: 12001; 70450; 72125; 99284; A6446; A6449

== ENCOUNTER 2022-08-06 22:30 | Emergency (ER) | payer MEDICAID ==
[~2022-08-06] VITALS: Ht 185.4 cm; Wt 84.1 kg
[2022-08-06 22:59] VITALS: BP 165/89
== END 2022-08-07 02:54 | disposition left against medical advice (07) ==
LOC: ER 22:31
DX: M54.2 Cervicalgia (principal); Z53.21 Procedure and treatment not carried out due to patient leaving prior to being seen by health care provider

== ENCOUNTER 2022-08-08 02:00 | Emergency (ER) | payer MEDICAID ==
[~2022-08-08] VITALS: Ht 185.4 cm; Wt 81.5 kg
[2022-08-08 02:11] VITALS: BP 187/96
== END 2022-08-08 03:11 | disposition left against medical advice (07) ==
LOC: ER 02:01
DX: L29.9 Pruritus, unspecified (principal); Z53.21 Procedure and treatment not carried out due to patient leaving prior to being seen by health care provider

== ENCOUNTER 2023-01-30 19:59 | Emergency (ER) | payer MEDICAID ==
[~2023-01-30] VITALS: Ht 185.4 cm; Wt 84.1 kg
[~2023-01-30 19:59] MED LIST changes: +CEPH-585 PO; +CYCL-1 PO; +IBUP-1986 PO; +LORA10TA65 PO
[2023-01-30 20:15] VITALS: BP 149/88
[2023-01-30] MEDS ORDERED: SULF1TAB49 PO (20:51)
[2023-01-30] MEDS ORDERED: bacitracin 15gm ointment TP ONE (20:55)
== END 2023-01-30 21:29 | disposition home or self-care (01) ==
LOC: ER 19:59
DX: S50.911A Unspecified superficial injury of right forearm, initial encounter (principal); L03.113 Cellulitis of right upper limb; I10 Essential (primary) hypertension; G89.29 Other chronic pain; Z86.14 Personal history of Methicillin resistant Staphylococcus aureus infection; F15.90 Other stimulant use, unspecified, uncomplicated; Z56.0 Unemployment, unspecified; Z59.00 Homelessness unspecified; Z88.1 Allergy status to other antibiotic agents; Z88.8 Allergy status to other drugs, medicaments and biological substances; Z88.5 Allergy status to narcotic agent; Z79.2 Long term (current) use of antibiotics; Z79.899 Other long term (current) drug therapy; X58.XXXA Exposure to other specified factors, initial encounter; Y93.89 Activity, other specified; Y92.89 Other specified places as the place of occurrence of the external cause; Y99.8 Other external cause status
CPT/HCPCS: 99283

== ENCOUNTER 2023-03-15 22:04 | Emergency (ER) | payer MEDICAID ==
[~2023-03-15] VITALS: Ht 185.4 cm; Wt 84.1 kg
[2023-03-15 22:14] VITALS: TEMP 97
[2023-03-15] MEDS ORDERED: DOXYCYCLINE 100MG CAPSULE PO STA (23:10)
[2023-03-15] MEDS ORDERED: lisinopril 10 MG tablet PO ONE (23:10)
[2023-03-15] MEDS ORDERED: LISI40TA13 PO (23:13)
[2023-03-15] MEDS ORDERED: DOXY-135 PO (23:13)
[2023-03-15 23:23] VITALS: BP_DIAS 89; RESP 12; O2SAT 99
[2023-03-15 23:26] VITALS: BP_SYST 143; PULSE 80
== END 2023-03-15 23:29 | disposition home or self-care (01) ==
LOC: ER 22:05
DX: L03.113 Cellulitis of right upper limb (principal); I10 Essential (primary) hypertension; F15.90 Other stimulant use, unspecified, uncomplicated; Z91.041 Radiographic dye allergy status; Z88.1 Allergy status to other antibiotic agents; Z88.5 Allergy status to narcotic agent; Z79.899 Other long term (current) drug therapy; Z79.2 Long term (current) use of antibiotics
CPT/HCPCS: 99283

== ENCOUNTER 2023-06-01 23:29 | Emergency (ER) | payer MEDICAID ==
[~2023-06-01] VITALS: Ht 185.4 cm; Wt 74.5 kg
[2023-06-01 23:40] VITALS: RESP 16
[2023-06-02] MEDS ORDERED: LISI10TA27 PO (00:13)
[2023-06-02 00:26] VITALS: BP 158/96; PULSE 80; TEMP 98.1; O2SAT 98
== END 2023-06-02 00:28 | disposition home or self-care (01) ==
LOC: ER 23:30
DX: I10 Essential (primary) hypertension (principal); G89.29 Other chronic pain; F15.90 Other stimulant use, unspecified, uncomplicated; Z56.0 Unemployment, unspecified; Z59.00 Homelessness unspecified; Z98.890 Other specified postprocedural states; Z88.8 Allergy status to other drugs, medicaments and biological substances; Z88.1 Allergy status to other antibiotic agents; Z88.5 Allergy status to narcotic agent; Z79.2 Long term (current) use of antibiotics; Z79.899 Other long term (current) drug therapy
CPT/HCPCS: 99283

== ENCOUNTER 2023-07-05 23:25 | Emergency (ER) | payer MEDICAID ==
[~2023-07-05] VITALS: Ht 185.4 cm; Wt 77.3 kg
[~2023-07-05 23:25] MED LIST changes: +LISI10TA27 PO
[2023-07-05] MEDS ORDERED: LISI20TA28 PO (23:33)
[2023-07-05] MEDS ORDERED: lisinopril 10 MG tablet PO ONE (23:35)
[2023-07-05 23:46] VITALS: BP 156/90; PULSE 82; RESP 16; TEMP 98.9; O2SAT 99
== END 2023-07-05 23:47 | disposition home or self-care (01) ==
LOC: ER 23:26
DX: I10 Essential (primary) hypertension (principal); Z76.0 Encounter for issue of repeat prescription
CPT/HCPCS: 99281; 99283

== ENCOUNTER 2023-09-24 22:48 | Emergency (ER) | payer MEDICAID ==
[~2023-09-24] VITALS: Ht 185.4 cm; Wt 79.5 kg
[2023-09-24 22:52] VITALS: BP 162/87; PULSE 74; RESP 18; TEMP 97.7; O2SAT 97
[2023-09-25] MEDS ORDERED: LISI40TA13 PO (00:46)
== END 2023-09-25 00:58 | disposition home or self-care (01) ==
LOC: ER 22:49
DX: I10 Essential (primary) hypertension (principal); Z76.0 Encounter for issue of repeat prescription; F32.A Depression, unspecified; F15.90 Other stimulant use, unspecified, uncomplicated; Z59.00 Homelessness unspecified; Z56.0 Unemployment, unspecified
CPT/HCPCS: 99281

== ENCOUNTER 2023-10-20 23:55 | Emergency (ER) | payer MEDICAID ==
[~2023-10-20] VITALS: Ht 185.4 cm; Wt 81.8 kg
[2023-10-21 00:10] VITALS: BP 152/88; PULSE 73; RESP 18; TEMP 98.4; O2SAT 97
[2023-10-21] MEDS ORDERED: ENAL20TA75 PO (00:45)
[2023-10-21] MEDS ORDERED: LISI40TA13 PO (00:45)
[2023-10-21] MEDS ORDERED: DOXY-356 PO (00:45)
== END 2023-10-21 01:08 | disposition home or self-care (01) ==
LOC: ER 23:56
DX: L03.114 Cellulitis of left upper limb (principal); I10 Essential (primary) hypertension; G89.29 Other chronic pain; F32.9 Major depressive disorder, single episode, unspecified; F15.90 Other stimulant use, unspecified, uncomplicated; Z86.14 Personal history of Methicillin resistant Staphylococcus aureus infection; Z98.890 Other specified postprocedural states; Z60.2 Problems related to living alone; Z59.00 Homelessness unspecified; Z56.0 Unemployment, unspecified; Z76.0 Encounter for issue of repeat prescription; Z88.1 Allergy status to other antibiotic agents; Z88.5 Allergy status to narcotic agent; Z88.8 Allergy status to other drugs, medicaments and biological substances; Z79.899 Other long term (current) drug therapy
CPT/HCPCS: 99281; 99283

== ENCOUNTER 2024-03-31 21:49 | Emergency (ER) | payer MEDICAID ==
[~2024-03-31] VITALS: Ht 185.4 cm; Wt 80.2 kg
[~2024-03-31 21:49] MED LIST changes: -CEPH-585 PO
[2024-03-31 22:11] VITALS: BP 160/89; PULSE 56; RESP 16; TEMP 98.1; O2SAT 99
[2024-03-31] MEDS ORDERED: LISI40TA13 PO (22:49)
== END 2024-03-31 23:04 | disposition home or self-care (01) ==
LOC: ER 21:50
DX: I10 Essential (primary) hypertension (principal); Z76.0 Encounter for issue of repeat prescription; D64.9 Anemia, unspecified; G89.29 Other chronic pain; M54.9 Dorsalgia, unspecified; F15.90 Other stimulant use, unspecified, uncomplicated; Z88.1 Allergy status to other antibiotic agents; Z88.8 Allergy status to other drugs, medicaments and biological substances; Z79.899 Other long term (current) drug therapy; Z79.1 Long term (current) use of non-steroidal anti-inflammatories (NSAID); Z98.890 Other specified postprocedural states; Z59.00 Homelessness unspecified; Z56.0 Unemployment, unspecified; Z60.2 Problems related to living alone
CPT/HCPCS: 99281

== ENCOUNTER 2024-05-12 18:15 | Emergency (ER) | payer MEDICAID ==
[~2024-05-12] VITALS: Ht 185.4 cm; Wt 77.3 kg
[2024-05-12 18:16] VITALS: TEMP 98.2
[2024-05-12] MEDS ORDERED: LISI40TA13 PO (18:27)
[2024-05-12 18:40] VITALS: BP_DIAS 98; RESP 16; O2SAT 97
[2024-05-12 18:41] VITALS: BP_SYST 141; PULSE 83
[2024-05-12] MEDS: lisinopril 10 MG tablet PO ONE (18:41)
== END 2024-05-12 18:46 | disposition home or self-care (01) ==
LOC: ER 18:15
DX: Z76.0 Encounter for issue of repeat prescription (principal); I10 Essential (primary) hypertension; G89.29 Other chronic pain; F32.A Depression, unspecified; F15.90 Other stimulant use, unspecified, uncomplicated; Z88.1 Allergy status to other antibiotic agents; Z88.5 Allergy status to narcotic agent; Z88.8 Allergy status to other drugs, medicaments and biological substances; Z91.041 Radiographic dye allergy status; Z79.899 Other long term (current) drug therapy; Z79.1 Long term (current) use of non-steroidal anti-inflammatories (NSAID)
CPT/HCPCS: 99283

== ENCOUNTER 2024-08-31 20:00 | Emergency (ER) | payer MEDICAID ==
[~2024-08-31] VITALS: Ht 185.4 cm; Wt 63.4 kg
[2024-08-31] MEDS: ibuprofen tablet 400 MG TABLET PO ONE (20:33)
[2024-08-31] MEDS: acetaminophen 325mg tablet PO ONE (20:33)
[2024-08-31 20:43] LABS: BASOPHILS % (AUTO) 0.7 % (0-1); EOSINOPHILS # (AUTO) 0.2 X10'3 (0-0.9); HEMATOCRIT 30.2 % (42.0-52.0); HEMOGLOBIN 10.5 g/dl (14.0-17.9); LYMPHOCYTES # (AUTO) 0.8 X10'3 (1.1-4.8); LYMPHOCYTES % (AUTO) 16.7 % (21-51); MEAN CORPUSCULAR HEMOGLOBIN 30.8 PG (27.0-31.0); MEAN CORPUSCULAR HGB CONC 34.6 g/dL (33.0-36.5); MEAN PLATELET VOLUME 7.6 FL (7.4-10.4); MONOCYTES # (AUTO) 0.6 X10'3 (0-0.9); MONOCYTES % (AUTO) 12.3 % (2-12); NEUTROPHILS # (AUTO) 2.9 X10'3 (1.8-7.7); NEUTROPHILS % (AUTO) 65.3 % (42-75); PLATELET COUNT 171 X10'3 (140-440); RED BLOOD COUNT 3.39 X10'6 (4.70-6.10); RED CELL DISTRIBUTION WIDTH 14.3 % (11.5-14.5); WHITE BLOOD COUNT 4.5 X10'3 (4.5-11.0)
[2024-08-31 21:02] LABS: ALANINE AMINOTRANSFERASE 28 U/L (12-78); ALBUMIN 3.5 G/DL (3.4-5.0); ALBUMIN/GLOBULIN RATIO 0.9 (1.1-1.5); ALKALINE PHOSPHATASE 59 IU/L (46-116); ANION GAP 1 (8-16); ASPARTATE AMINO TRANSFERASE 43 U/L (10-37); BILIRUBIN,TOTAL 0.3 MG/DL (0.1-1.0); BLOOD UREA NITROGEN 24 MG/DL (7-18); CALCIUM 8.9 MG/DL (8.5-10.1); CHLORIDE 104 MMOL/L (99-107); CREATININE 1.09 MG/DL (0.60-1.10); GLUCOSE 96 MG/DL (70-104); POTASSIUM 4.2 MMOL/L (3.5-5.1); SODIUM 140 MMOL/L (135-145); TOTAL CARBON DIOXIDE 34.8 MMOL/L (24-32); TOTAL PROTEIN 7.2 G/DL (6.4-8.2); eCRCL 65 ML/MIN; eGFR 69 ML/MIN
[2024-08-31 23:32] LABS: BILIRUBIN,URINE NEGATIVE (Neg); CLARITY,URINE CLEAR (Clear); COLOR,URINE YELLOW (Yellow); GLUCOSE, URINE NEGATIVE (Neg); KETONES,URINE NEGATIVE (Neg); LEUKOCYTE ESTERASE ,URINE NEGATIVE (Neg); NITRITES, URINE NEGATIVE (Neg); OCCULT BLOOD,URINE NEGATIVE (Neg); PROTEIN,URINE NEGATIVE (Neg)
[2024-08-31 23:33] VITALS: TEMP 98.7
[2024-08-31 23:48] LABS: UA COLLECTION TYPE CLN CATCH MIDSTREAM
[2024-09-01 01:23] VITALS: BP 158/89; PULSE 63; RESP 16; O2SAT 98
== END 2024-09-01 01:27 | disposition home or self-care (01) ==
LOC: ER 20:00
DX: R35.0 Frequency of micturition (principal); I10 Essential (primary) hypertension; F15.90 Other stimulant use, unspecified, uncomplicated; G89.29 Other chronic pain; M54.9 Dorsalgia, unspecified; F32.A Depression, unspecified; Z88.1 Allergy status to other antibiotic agents; Z88.5 Allergy status to narcotic agent; Z88.6 Allergy status to analgesic agent; Z79.899 Other long term (current) drug therapy; Z98.890 Other specified postprocedural states; Z56.0 Unemployment, unspecified; Z59.00 Homelessness unspecified; Z60.2 Problems related to living alone; Z20.822 Contact with and (suspected) exposure to COVID-19
CPT/HCPCS: 36415; 74176; 80053; 81003; 85025; 87502; 87503; 87811; 99284

== ENCOUNTER 2024-09-14 20:11 | Emergency (ER) | payer MEDICAID ==
[~2024-09-14] VITALS: Ht 185.4 cm; Wt 58.1 kg
[2024-09-14 20:17] VITALS: RESP 15
[2024-09-14] MEDS ORDERED: CETI10TA14 PO (23:28)
== END 2024-09-14 23:34 | disposition home or self-care (01) ==
LOC: ER 20:11
DX: R09.89 Other specified symptoms and signs involving the circulatory and respiratory systems (principal); G89.29 Other chronic pain; I10 Essential (primary) hypertension; F15.90 Other stimulant use, unspecified, uncomplicated; Z88.1 Allergy status to other antibiotic agents; Z88.3 Allergy status to other anti-infective agents; Z88.5 Allergy status to narcotic agent; Z88.6 Allergy status to analgesic agent; Z88.8 Allergy status to other drugs, medicaments and biological substances; Z79.899 Other long term (current) drug therapy
CPT/HCPCS: 99282

== ENCOUNTER 2024-10-01 15:27 | Emergency (ER) | payer MEDICAID ==
[~2024-10-01] VITALS: Ht 185.4 cm; Wt 81.5 kg
[~2024-10-01 15:27] MED LIST changes: +CETI10TA14 PO
[2024-10-01] MEDS ORDERED: SULF1TAB49 PO (15:51)
[2024-10-01] MEDS ORDERED: CEPH-585 PO (15:51)
[2024-10-01] MEDS: sulfamethoxazole/trimethoprim DS (800/160mg) tablet PO ONE (16:03)
[2024-10-01] MEDS: CefTRIAXone 1000mg IM Kit (w/lidocaine diluent) IM ONE (16:05)
[2024-10-01 16:14] VITALS: BP 129/63; PULSE 80; RESP 16; TEMP 99.3; O2SAT 99
== END 2024-10-01 16:16 | disposition home or self-care (01) ==
LOC: ER 15:28
DX: S80.922A Unspecified superficial injury of left lower leg, initial encounter (principal); L03.116 Cellulitis of left lower limb; I10 Essential (primary) hypertension; Z88.5 Allergy status to narcotic agent; Z88.1 Allergy status to other antibiotic agents; Z88.8 Allergy status to other drugs, medicaments and biological substances; F32.A Depression, unspecified; X58.XXXA Exposure to other specified factors, initial encounter; Y93.89 Activity, other specified; Y92.89 Other specified places as the place of occurrence of the external cause; Y99.8 Other external cause status
CPT/HCPCS: 96372; 99283; J0696

== ENCOUNTER 2024-10-17 22:49 | Emergency (ER) | payer MEDICAID ==
[~2024-10-17] VITALS: Ht 185.4 cm; Wt 82.3 kg
[2024-10-18] MEDS ORDERED: CLIN-214 PO (00:32)
[2024-10-18] MEDS: clindamycin 150mg capsule PO ONE (00:42)
[2024-10-18 01:15] VITALS: BP 148/80; PULSE 79; RESP 18; TEMP 98.6; O2SAT 99
== END 2024-10-18 01:17 | disposition home or self-care (01) ==
LOC: ER 22:50
DX: L03.116 Cellulitis of left lower limb (principal); I10 Essential (primary) hypertension; F32.A Depression, unspecified; F15.90 Other stimulant use, unspecified, uncomplicated; Z88.5 Allergy status to narcotic agent; Z88.1 Allergy status to other antibiotic agents; Z88.8 Allergy status to other drugs, medicaments and biological substances; Z98.890 Other specified postprocedural states
CPT/HCPCS: 99283

== ENCOUNTER 2024-11-10 19:57 | Emergency (ER) | payer MEDICAID ==
[~2024-11-10 19:57] MED LIST changes: +CLIN-214 PO
== END 2024-11-10 20:32 | disposition left against medical advice (07) ==
LOC: ER 19:58
DX: B85.1 Pediculosis due to Pediculus humanus corporis (principal); Z53.21 Procedure and treatment not carried out due to patient leaving prior to being seen by health care provider; Z88.1 Allergy status to other antibiotic agents; Z88.5 Allergy status to narcotic agent

== ENCOUNTER 2024-12-24 20:28 | Inpatient (IN) | payer MEDICAID ==
[~2024-12-24] VITALS: Ht 185.4 cm; Wt 83.0 kg
[2024-12-24 21:14] LABS: BASOPHILS # (AUTO) 0.1 X10'3 (0-0.2); BASOPHILS % (AUTO) 0.7 % (0-1); EOSINOPHILS # (AUTO) 0.3 X10'3 (0-0.9); HEMOGLOBIN 9.7 g/dl (14.0-17.9); LYMPHOCYTES # (AUTO) 1.2 X10'3 (1.1-4.8); LYMPHOCYTES % (AUTO) 14.2 % (21-51); MEAN CORPUSCULAR HEMOGLOBIN 28.6 PG (27.0-31.0); MEAN CORPUSCULAR HGB CONC 33.4 g/dL (33.0-36.5); MEAN CORPUSCULAR VOLUME 85.7 FL (78-98); MEAN PLATELET VOLUME 7.7 FL (7.4-10.4); MONOCYTES # (AUTO) 0.8 X10'3 (0-0.9); MONOCYTES % (AUTO) 10.3 % (2-12); NEUTROPHILS # (AUTO) 5.8 X10'3 (1.8-7.7); NEUTROPHILS % (AUTO) 70.8 % (42-75); PLATELET COUNT 194 X10'3 (140-440); RED BLOOD COUNT 3.38 X10'6 (4.70-6.10); WHITE BLOOD COUNT 8.2 X10'3 (4.5-11.0)
[2024-12-24 21:29] LABS: ALANINE AMINOTRANSFERASE 26 U/L (12-78); ALBUMIN 3.2 G/DL (3.4-5.0); ALBUMIN/GLOBULIN RATIO 0.7 (1.1-1.5); ALKALINE PHOSPHATASE 69 IU/L (46-116); ANION GAP 5 (8-16); ASPARTATE AMINO TRANSFERASE 23 U/L (10-37); BILIRUBIN,TOTAL 0.5 MG/DL (0.1-1.0); BLOOD UREA NITROGEN 28 MG/DL (7-18); BUN/CREATININE RATIO 22.2 (10.0-20.0); CALCIUM 8.8 MG/DL (8.5-10.1); CHLORIDE 103 MMOL/L (99-107); CREATININE 1.26 MG/DL (0.60-1.10); GLUCOSE 101 MG/DL (70-104); POTASSIUM 3.8 MMOL/L (3.5-5.1); SODIUM 137 MMOL/L (135-145); TOTAL CARBON DIOXIDE 29.3 MMOL/L (24-32); TOTAL PROTEIN 7.6 G/DL (6.4-8.2); eCRCL 70 ML/MIN; eGFR 58 ML/MIN
--- NOTE | 2024-12-24 21:30 | Physician Documentation ---
History of Present Illness ~ Chief Complaint: Abscess Stated Complaint: LEG INFECTION Time Seen by MD: 21:15 Primary Medical Doctor: None Mode of Arrival: POV HPI This is a 59-year-old gentleman with a known history of recurrent left lower extremity cellulitis and wound, currently not with the wound care, status post four rounds of antibiotics, comes in for evaluation of pain, swelling, erythema and calor to the left lower extremity for the last several days. No obvious trigger provocation. Does have chronic wound that isn't getting better. Did not attempt to treat it other than antibiotics above. Denies any other symptoms such as chest pain or difficulty breathing. He denies any concerns for tobacco, alcohol or illicit substances. Tetanus witin 5 years: Yes (2019) Medication Reconciliation Allergies: Coded Allergies: erythromycin base (Verified Allergy, Severe, 10/17/24) vancomycin (Verified Allergy, Severe, 10/17/24) codeine (Verified Allergy, Unknown, 10/17/24) morphine (Verified Allergy, Unknown, 10/17/24) Scheduled Buprenorphine HCl/Naloxone HCl (Buprenorphin-Naloxon 8-2 mg Tb), 1 TAB SL TID Cetirizine HCl (Cetirizine HCl), 1 TAB PO DAILY Clindamycin HCl (Clindamycin HCl CAPSULE), 1 CAP PO TID Clotrimazole (Clotrimazole), 1 APPLIC TOP Q12H Cyclobenzaprine* (Cyclobenzaprine*), 1 TAB PO Q8H Diclofenac Sodium (Voltaren Arthritis Pain), 1 APPLIC TOP BID Diphenhydramine HCl (Benadryl), 1 CAP PO HS Famotidine (Pepcid Ac), 1 TAB PO DAILY Hydrocortisone (hydrocortisone 1% cream), 1 APPLIC TOP Q12H Hydroxyzine Hcl* (Atarax*), Unknown Dose PO DAILY, (Reported) Ibuprofen (Ibuprofen), 1 TAB PO Q8H Ibuprofen (Ibuprofen), 1 TAB PO Q8H Lisinopril (Lisinopril), 1 TAB PO DAILY Lisinopril* (Lisinopril*), 1 TAB PO DAILY Loratadine (Claritin), 1 TAB PO DAILY Past Medical History Past Medical History: Vertigo, Hypertension, Anemia, Chronic Pain, Chronic Back Pain, MRSA Abscess, Depression Past Surgical History: orthopedic surgeries Alcohol Use: None Drug Use: methamphetamine Lives with: Alone Lives In: Homeless Occupation: unemployed Review of Systems ROS 10 point review of systems was performed and unless noted above in HPI is negative for acute process/complaint. Physical Exam Vital Signs: Temperature: 99.2, Source: Oral, Heart Rate: 69, Respiratory Rate: 12, BP: 127/65, Pulse Oximetry: 96, Weight: 83.000 Oxygen Flow Rate: 0 Physical Exam GENERAL: Awake, alert, oriented, GCS 15, no apparent distress, non-toxic appearing, answers questions, follows commands appropriately. HEENT: Atraumatic, normocephalic, pupils equal, extraocular muscles intact, sclerae anicteric, mucus membranes moist, oropharynx is clear, no stridor. NECK: supple, full active range of motion, trachea midline, no thyromegaly, no lymphadenopathy, no JVD. CARDIOVASCULAR: regular rate/rhythm, no murmurs/gallops/rubs, Pulses are 2+ in all extremities and symmetric. Capillary refill less than 2 seconds. PULMONARY: Nonlabored, good air movement ,no respiratory distress, speaking in full sentences, clear to auscultation bilaterally, no wheezing, no ronchi, no rales, no accessory muscle use. GASTROINTESTINAL: Soft, non-tender, non-distended, normal active bowel sounds, no organomegaly, no pulsatile masses, no CVA tenderness. NEUROLOGIC: Lucid with normal mental status. Normal facial symmetry. Moves all extremities symmetrically and with purpose. No truncal ataxia. Speech is fluid without evidence of dysarthria or aphasia, no focal deficits appreciated. MUSCULOSKELETAL: There is full range of motion of all extremities. There is no joint pain or joint swelling or joint erythema. There is no muscle pain or tenderness or swelling. EXTREMITIES: warm, well-perfused, no cyanosis, no clubbing, no edema, no acute deformities. Skin: warm, dry, no rashes or lesions, no jaundice, no petechiae orpurpura. No ecchymosis. PSYCHIATRIC: Normal affect, normal insight, normal concentration. Focused exam: [] Left lower extremity is of markedly erythematous, swollen, tender to palpation reproducing chief complaint, there is a chronic appearing wound with some yellow discharge on the posterior aspect of his left calf, calor noted. Neurovascularly intact. The swelling now involves entire calf and anterior leg. Progress Results/Orders Results/Orders Orders - ASHWIN REED DO Culture Blood (12/24/24 20:47) Urinalysis, Cult If Indicated (12/24/24 20:47) Monitor (12/24/24 20:47) Saline Lock (12/24/24 20:47) Straight Cath For Urine Sample (12/24/24 20:47) Tib/Fib (12/24/24 ) Completed Orders - ASHWIN REED DO Cbc/Diff (12/24/24 20:47) Procalcitonin (12/24/24 20:47) CMP (12/24/24 20:47) Lacticsepsis (12/24/24 20:47) ESR (12/24/24 21:25) Piperacillin/Tazo 4.5gm/100ml (Zosyn 4.5 (12/24/24 21:25) Normal Saline 1000ml (Sodium Chloride 10 (12/24/24 21:25) Hs Troponin I W Calculations (12/24/24 21:25) Ketorolac Trometh 30mg/Ml Vial (Toradol (12/24/24 21:30) CK (12/24/24 21:03) C-Reactive Protein (12/24/24 21:03) Tib/Fib (12/24/24 ) Medications Received in ER Medications (Trade) Dose Ordered Sig/Pedro Route PRN Reason Start Time Stop Time Status Last Admin Dose Admin Piperacillin/ Tazobactam/ Dextrose 100 ml @ 100 mls/hr ONCE ONCE IV 12/24/24 21:25 12/24/24 22:24 DC 12/24/24 21:57 100 MLS/HR (sodium chloride 1000ml IV soln) 1,000 ml ONCE ONCE IVB 12/24/24 21:25 12/24/24 21:27 DC 12/24/24 21:57 1,000 ML (Toradol inj. 30mg/ml) 30 mg ONCE ONCE IV 12/24/24 21:30 12/24/24 21:32 DC 12/24/24 21:57 30 MG Vital Signs 12/24/24 12/24/24 12/24/24 12/24/24 20:36 21:17 21:20 21:57 Temp 99.2 99.2 Pulse 78 69 Resp 16 10 12 16 B/P (MAP) 130/75 127/65 (85) Pulse Ox 98 96 O2 Flow Rate 0 0 Laboratory Tests Test 12/24/24 21:03 White Blood Count 8.2 Red Blood Count 3.38 L Hemoglobin 9.7 L Hematocrit 29.0 L Mean Corpuscular Volume 85.7 Mean Corpuscular Hemoglobin 28.6 Mean Corpuscular Hemoglobin Concent 33.4 Red Cell Distribution Width 16.0 H Platelet Count 194 Mean Platelet Volume 7.7 Neutrophils (%) (Auto) 70.8 Lymphocytes (%) (Auto) 14.2 L Monocytes (%) (Auto) 10.3 Eosinophils (%) (Auto) 4.0 Basophils (%) (Auto) 0.7 Neutrophils # (Auto) 5.8 Lymphocytes # (Auto) 1.2 Monocytes # (Auto) 0.8 Eosinophils # (Auto) 0.3 Basophils # (Auto) 0.1 CBC Comment Erythrocyte Sedimentation Rate 41 H Sodium Level 137 Potassium Level 3.8 Chloride Level 103 Carbon Dioxide Level 29.3 Anion Gap 5 L Blood Urea Nitrogen 28 H Creatinine 1.26 H Estimated GFR/1.73 m2 58 BUN/Creatinine Ratio 22.2 H Glucose Level 101 Lactic Acid Level 1.3 Calcium Level 8.8 Total Bilirubin 0.5 Aspartate Amino Transf (AST/SGOT) 23 Alanine Aminotransferase (ALT/SGPT) 26 Alkaline Phosphatase 69 Total Creatine Kinase 201 Troponin I High Sensitivity 21 C-Reactive Protein 3.22 H Total Protein 7.6 Albumin 3.2 L Globulin 4.4 H Albumin/Globulin Ratio 0.7 L Procalcitonin 0.06 Chemistry Comments Medical Decision Making Findings Facility Status: ED Holds, [facility] process The plan was discussed with the patient, who demonstrates clear understanding of the plan and is in agreement with the plan unless otherwise noted in the chart. All questions have been answered, all concerns were addressed unless otherwise documented. I was available throughout their ED stay for frequent reassessment and que stions. Differential Diagnoses (considered and possible or likely): [Cellulitis, absc ess, necrotizing fasciitis, osteomyelitis, failure of outpatient treatment] ??Differential Diagnoses (considered and unlikely, not requiring evaluation currently): [See above] MDM Data Please see HPI for the following: Independent Historians and external Records Review. Historian: [Patient] Independent Historians: ?[Record review] Medication Management: [Reviewed medication list] Social History and determinants: [Reviewed] Please see the body of the note for the following: Any independent interpretations of ECG, imaging studies. All vitals signs/haemodynamics, ordered tests were independently reviewed and interpreted by myself. Nursing triage complaint and vitals reviewed, additional nursing notes were reviewed as available and I agree unless otherwise noted or documented in contradiction in the chart Vital Signs: Independently reviewed Labs: Independently interpreted Imaging: Independently interpreted Old Medical Records: Independently reviewed, see HPI for relevant summary and information Pulse Oximetry: [98%] interpreted as [normal on room air] by me [Board Certified Family Physician: [Regular Rate, Regular rhythm, no ectopy, NSR] reviewed and interpreted by me] Additionally notably showing: [Hemodynamically stable. Laboratory workup notable for elevated inflammatory markers. X-ray is unremarkable.] Tests considered but not ordered include: [Advanced imaging has been considerably but does not appear to be necessary] Social Determinants of Health Impact: Patient was evaluated in [facility], [facility] [place] to [facility] due to below par ratio of patient to medical providers. [] Comorbid Conditions Impacting Present Evaluation and Care/Treatment: [History of recurrent cellulitis] Management Discussions with other Healthcare Providers: [Hospitalist regarding admission] Treatment and Disposition Medication Management (Given or considered): [Fluids and antibiotics]. See EMR for details Consideration for Hospitalization/Escalation/Deescalation of Care: Admission for observation has been considered, and appears to be necessary for further management of his failure of outpatient treatment of his extensive cellulitis of left lower extremity ?ED Course:?[No clinical deterioration. Received antibiotics and pain management with the response.] ?Shared decision making:?[] Code status:?FULL Please see the full Electronic Medical Record for full details of nursing documentation, medications list, other records of complete past medical history and conditions, vital signs, laboratory studies, and any radiologic study interpretations by radiologists. Portions of this note were completed using [employer] dictation software and as a result there may exist minor errors in spelling. I have reviewed elements of past family and social history and agree as included in note. Departure Disposition: 09 ADMITTED INPATIENT Impression: Primary Impression: Cellulitis of left lower extremity Additional Impressions: Chronic wound of extremity Failure of outpatient treatment Condition: Improved Referrals: NO PRIMARY CARE PROVIDER (PCP) Signature Scribe Signature: No scribe Attestation: This note accurately reflects clinical decisions, work performed by myself, Ashwin Reed, ASHWIN BUENO DO Dec 24, 2024 21:30
[2024-12-24 21:54] LABS: C-REACTIVE PROTEIN 3.22 MG/DL (0.0-0.5); CREATINE KINASE 201 U/L (39-308)
[2024-12-24] MEDS: piperacillin/tazo 4.5gm/100ml 100 ML IV ONE (21:57)
[2024-12-24] MEDS: ketorolac trometh 30MG/ML vial 30 MG/ML VIAL IV ONE (21:57)
[2024-12-24] MEDS: normal saline 1000ML IV soln IVB ONE (21:57)
--- NOTE | 2024-12-24 22:05 | RADIOLOGY REPORT ---
CLINICAL INDICATION: Pain, swelling, Gas TECHNIQUE: DI TIB/FIB 2 VWS Comparison: None FINDINGS: No osseous or joint abnormality identified with no fracture or dislocation. Joint spaces are normal. Soft tissues appear unremarkable. Small enthesophyte noted at Achilles tendon insertion and small c alcaneal spur. IMPRESSION: No acute abnormality identified.
[2024-12-24] MEDS ORDERED: potassium Cl 20 mEq SR tablet PO PRN ×2 (23:20)
[2024-12-24] MEDS ORDERED: ondansetron/PF 4mg/2ml inj IV PRN (23:20)
[2024-12-24] MEDS ORDERED: acetaminophen 325mg tablet PO PRN (23:20)
[2024-12-24] MEDS ORDERED: magnesium sulf-water 4G/100mL 100 ML IV PRN (23:20)
[2024-12-24] MEDS ORDERED: potassium Cl 40MEQ/1/2NS 520ml 520 ML IV PRN (23:20)
[2024-12-24] MEDS ORDERED: magnesium Cl slow-release 64mg tablet PO PRN (23:20)
[2024-12-24] MEDS ORDERED: magnesium sulf-water 2g/50mL 50 ML IV PRN (23:20)
[2024-12-24] MEDS: normal saline 1000ml 1,000 ML IV SCH (23:29)
--- NOTE | 2024-12-24 23:39 | HISTORY AND PHYSICAL-Residence ---
History & Physical Providers to CC Resident Creating Document: AZULPADMAJAASHURIGOBERTO ~ History of Present Illness Primary Medical Doctor: None Reason for Admit\Complaint: cellulitis History of Present Illness The patient is a 59-year-old homeless male who presented to the emergency department with progressively worsening pain, swelling, and tenderness in his left lower extremity. He reports a chronic nonhealing wound that has been present since July of this year, for which he has received multiple course of oral antibiotics without improvement. The wound has progressively worsened despite these treatments. He also have history of methamphetamine use and reports having a MRSA infection on his back a few years ago. Allergies: Coded Allergies: erythromycin base (Verified Allergy, Severe, 10/17/24) vancomycin (Verified Allergy, Severe, 10/17/24) codeine (Verified Allergy, Unknown, 10/17/24) morphine (Verified Allergy, Unknown, 10/17/24) Home Medications Home Medications Active Clindamycin HCl CAPSULE (Clindamycin HCl) 150 Mg Capsule 1 Cap PO TID Cetirizine HCl 10 Mg Tablet 1 Tab PO DAILY 30 Days Lisinopril 10 Mg Tablet 1 Tab PO DAILY 30 Days Lisinopril* (Lisinopril) 40 Mg Tablet 1 Tab PO DAILY 90 Days Claritin (Loratadine) 10 Mg Tablet 1 Tab PO DAILY 30 Days Cyclobenzaprine* (Cyclobenzaprine HCl) 10 Mg Tablet 1 Tab PO Q8H 10 Days Ibuprofen 800 Mg Tablet 1 Tab PO Q8H 10 Days Voltaren Arthritis Pain (Diclofenac Sodium) 20 Gm Gel..gram. 1 Applic TOP BID Ibuprofen 600 Mg Tablet 1 Tab PO Q8H 10 Days hydrocortisone 1% cream (Hydrocortisone) 1 Applic Cream..g. 1 Applic TOP Q12H 10 Days Clotrimazole 30 Gm Cream..g. 1 Applic TOP Q12H 7 Days apply to affected area(s) Pepcid Ac (Famotidine) 10 Mg Tablet 1 Tab PO DAILY 30 Days Benadryl (Diphenhydramine HCl) 25 Mg Capsule 1 Cap PO HS 30 Days Buprenorphin-Naloxon 8-2 mg Tb (Buprenorphine HCl/Naloxone HCl) 1 Each Tab.subl 1 Tab SL TID 2 Days Reported Atarax* (Hydroxyzine HCl) Unknown Strength Tablet Unknown Dose PO DAILY Past Medical History Past Medical History Patient does not report any past medical history Past Surgical History Surgical History Comment No significant history Past Social History Social History Comment He has been homeless for the past 10 years, never smoked as claimed. Uses methamphetamine, last use three months ago. Denies consuming alcohol. Alcohol Use: None Drug Use: Methamphetamine Lives with: Alone Lives In: Homeless Occupation: unemployed ROS All Other Systems: Reviewed and Negative ROS As stated above in the HPI, otherwise all systems are reviewed and negative. Exam Vitals: Vital Signs Date Time Temp Pulse Resp B/P (MAP) Pulse Ox O2 Delivery O2 Flow Rate FiO2 12/24/24 21:57 16 12/24/24 21:20 12/24/24 21:17 99.2 69 96 0 General Appearance: Appears tired, dehydrated, unkempt HEENT: Atraumatic, normocephalic, MELE, EOMI. Normal oropharynx, moist oral mucosa. Neck: Trachea midline. Supple, normal ROM. No JVD, bruit, lymphadenopathy or masses, or other lesions. Respiratory: Chest wall is symmetric and without deformity. No signs of respiratory distress. Equal breath sounds bilaterally. No wheeze, rub, Rales or crackles. Cardiac: RRR, no murmur, rub or gallop. Normal S1 and S2. GI: No tenderness. Abdomen symmetric, nondistended, soft, normal bowel sounds x4 quadrant normoactive. No guarding, no rebound or rigidity. No hepatosplenomegaly. No masses, no bruit, no flank pain bilaterally. Extremities: 5 cm long and 3-1/2 cm wide wound with necrotic tissues, scars, and slow waves Skin: Intact, dry, warm, no rashes or petechia. Neuro: Speech is clear, alert and oriented x4. No sensory or motor deficit, DTRs normal. Cranial nerves II to XII intact. Psych: Normal affect, good eye contact, no apparent hallucination, normal speech. Diagnostic Data Last Recorded Lab Results: 12/24/24210212/24/242102 Advance Care Planning Advanced Care plannin - 30 Minutes Additional Plan Assessment and plan: The patient is a 59-year-old homeless male who presented to the emergency department with progressively worsening pain, swelling, and tenderness in his left lower extremity. He reports a chronic nonhealing wound that has been present since July of this year, for which he has received multiple course of oral antibiotics without improvement. Left lower extremity cellulitis Nonhealing wound History of MRSA infection and allergy to vancomycin Inflammatory markers including procalcitonin and CRP elevated, however, does not meet SIRS/sepsis criteria Wound is open with yellow slough, erythema, and swelling, but no evidence of necrotizing fasciitis at this time Started on IV linezolid for MRSA coverage (patient is allergic to erythromycin base and vancomycin) Started on IV Zosyn from Gram-negative and anaerobic coverage, pending culture Blood culture obtained, wound culture ordered Wound consultation requested Monitor for systemic signs of sepsis Pain management in setting of morphine allergy, pain controlled with IV ketorolac and acetaminophen, monitor renal function closely while on ketorolac, limit to <5 days Acute kidney injury, more likely prerenal, renal tubular stasis Creatinine 1.26 Likely multifactorial, dehydration, possible infection related Received NS 1 L bolus in ER, continue NS 100 mL/hours Monitor renal function daily Avoid nephrotoxic agents Monitor urine output and electrolytes Poly substance abuse History of methamphetamine use Homelessness No PCP/poor outpatient follow up Urine drug screen positive for meth and fentanyl High risk for recurrent infection and poor wound healing fiscal services director consulted Code status: Full code DVT prophylaxis: Heparin subQ Ashu Hernandez Internal Medicine Resident I saw and evaluated the patient with the resident team and agree with assessment and plan I suggested asking the surgeons to see the wound as well they may decide on debridement Date of Service: Dec 24, 2024 Billing Provider: KENIA BOYKIN MD, SHAMS, RES Dec 24, 2024 23:39 KENIA BOYKIN MD Dec 25, 2024 05:28
[2024-12-25] MEDS: linezolid 600mg/300ml PREMIX 300 ML IV SCH
[2024-12-25] MEDS: linezolid 600mg/300ml PREMIX 300 ML IV ONE (01:02)
[2024-12-25 02:18] LABS: BASOPHILS % (AUTO) 0.4 % (0-1); EOSINOPHILS # (AUTO) 0.3 X10'3 (0-0.9); EOSINOPHILS % (AUTO) 4.5 % (0-6); HEMATOCRIT 27.8 % (42.0-52.0); HEMOGLOBIN 9.3 g/dl (14.0-17.9); LYMPHOCYTES # (AUTO) 1.4 X10'3 (1.1-4.8); LYMPHOCYTES % (AUTO) 19.6 % (21-51); MEAN CORPUSCULAR HEMOGLOBIN 28.5 PG (27.0-31.0); MEAN CORPUSCULAR HGB CONC 33.4 g/dL (33.0-36.5); MEAN CORPUSCULAR VOLUME 85.3 FL (78-98); MONOCYTES # (AUTO) 0.8 X10'3 (0-0.9); MONOCYTES % (AUTO) 11.9 % (2-12); NEUTROPHILS # (AUTO) 4.4 X10'3 (1.8-7.7); NEUTROPHILS % (AUTO) 63.6 % (42-75); PLATELET COUNT 163 X10'3 (140-440); RED BLOOD COUNT 3.26 X10'6 (4.70-6.10); RED CELL DISTRIBUTION WIDTH 15.6 % (11.5-14.5)
[2024-12-25 02:35] LABS: ALANINE AMINOTRANSFERASE 23 U/L (12-78); ALBUMIN 2.9 G/DL (3.4-5.0); ALBUMIN/GLOBULIN RATIO 0.7 (1.1-1.5); ALKALINE PHOSPHATASE 62 IU/L (46-116); ANION GAP 5 (8-16); ASPARTATE AMINO TRANSFERASE 20 U/L (10-37); BILIRUBIN,TOTAL 0.5 MG/DL (0.1-1.0); BLOOD UREA NITROGEN 29 MG/DL (7-18); BUN/CREATININE RATIO 23.4 (10.0-20.0); CALCIUM 8.4 MG/DL (8.5-10.1); CHLORIDE 104 MMOL/L (99-107); CREATININE 1.24 MG/DL (0.60-1.10); GLUCOSE 97 MG/DL (70-104); POTASSIUM 3.8 MMOL/L (3.5-5.1); SODIUM 138 MMOL/L (135-145); TOTAL CARBON DIOXIDE 28.8 MMOL/L (24-32); eCRCL 72 ML/MIN; eGFR 59 ML/MIN
[2024-12-25 02:52] LABS: OSMOLALITY 293 MOSM/K (280-300)
[2024-12-25 02:53] LABS: URINE AMPHETAMINE SCREEN POSITIVE (Neg); URINE BARBITUATE SCREEN NEGATIVE (Neg); URINE BENZODIAZEPINES SCREEN NEGATIVE (Neg); URINE CANNABINOID SCREEN NEGATIVE (Neg); URINE COCAINE SCREEN NEGATIVE (Neg); URINE METHADONE SCREEN POSITIVE (Neg); URINE OPIATE SCREEN NEGATIVE (Neg); URINE PHENCYCLIDINE SCREEN NEGATIVE (Neg)
[2024-12-25] MEDS: piperacillin/tazo 3.375gm/50ml 50 ML IV SCH (03:15)
[2024-12-25 03:19] LABS: BILIRUBIN,URINE NEGATIVE (Neg); CLARITY,URINE CLEAR (Clear); COLOR,URINE YELLOW (Yellow); GLUCOSE, URINE NEGATIVE (Neg); KETONES,URINE NEGATIVE (Neg); LEUKOCYTE ESTERASE ,URINE NEGATIVE (Neg); NITRITES, URINE NEGATIVE (Neg); OCCULT BLOOD,URINE NEGATIVE (Neg); PH,URINE 5.5 (4.8-8.0); PROTEIN,URINE NEGATIVE (Neg); UROBILINOGEN,URINE 0.2 E.U/dL (0.2-1.0)
[2024-12-25 03:23] LABS: UA COLLECTION TYPE NON-SPECIFIED
--- NOTE | 2024-12-25 07:57 | VASCULAR REPORT ---
EXAM: US Duplex Left Lower Extremity Veins CLINICAL INDICATION: Reason TECHNIQUE: Real-time duplex ultrasound scan of the left lower extremity veins integrating B-mode two -dimensional vascular structure, Doppler spectral analysis, color flow Doppler imaging and compressio n. COMPARISON: None FINDINGS: DEEP VEINS: Unremarkable. No DVT in the visualized common femoral, femoral, proximal deep femoral or popliteal veins. The veins demonstrate normal color flow, are normally compressible, with normal phasic flow and/or augmentation response. SUPERFICIAL VEINS: Unremarkable. No thrombus in the visualized great saphenous vein. SOFT TISSUES: No acute findings. No popliteal cyst. OTHER FINDINGS: . IMPRESSION: No DVT.
[2024-12-25] MEDS ORDERED: GADOTERATE MEGLUMINE 7.5 MMOL/15 ML VIAL IV ONE (08:00)
[2024-12-25] MEDS: K and/or MAG REPLACEMENT MC SCH (08:00)
[2024-12-25] MEDS: heparin, porcine 5000 units/ml vial SQ SCH (08:37)
--- NOTE | 2024-12-25 12:01 | RADIOLOGY REPORT ---
EXAM: MR MRI LOWER EXTREMITY LEFT INDICATION: Chronic non healing wound/ cellulitis, ESR and CRP high TECHNIQUE: Multiplanar and multisequence MR imaging of the left ankle was performed in the absence of gadolinium contrast. COMPARISON: None FINDINGS: There is subcutaneous soft tissue swelling present. There is no focal abscess in the soft tissues. There is no edema within the muscle planes of the anterior and posterior compartments of the calf. There is no altered signal in the tibia and fibula. IMPRESSION: 1. Cellulitis without evidence of osteomyelitis or soft tissue abscess.
[2024-12-25] MEDS ORDERED: METH-603 PO (13:00)
[2024-12-25 18:00] VITALS: BP 178/95; PULSE 52; RESP 16; TEMP 98.2; O2SAT 97
--- NOTE | 2024-12-25 18:42 | PROGRESS NOTE- Residence ---
Progress Note - Resident Providers to CC Resident Creating Document: JIL BILLY RES ~ Antibiotic Timeout Antibiotic Ordered?: Yes Subjective Patient was seen at the bedside in ER, he confirmed that he does not have any serious reaction from IV vancomycin except for the veins collapsed with the extent amount of vancomycin administration on the last time. He has a concern to continue his methadone from his clinic regularly. He endorsed that he has be undomiciled for more than 10 years and mainly staying over the street with little amount of walking around, with no knowledge of the wound was developed from the animal or insects bites. Denies skin scrapping or scratching to use illicit drugs. He usually went to the PCP at [facility] but recently follow to [facility]. Objective Vital Signs Date Time Temp Pulse Resp B/P (MAP) Pulse Ox O2 Delivery O2 Flow Rate FiO2 12/25/24 13:08 57 18 155/8 (57) 99 0 12/25/24 03:21 99.2 Result Diagram: 12/25/24 0152 12/25/24 0152 Vitals were stable at the moment with temp 99.2 F, SD 57/minute, RR 18/minute, BP 150 over 80 mm Hg, pulse oximetry 99% on room air. On exam, General: Well alert, well oriented, not confused, not agitated, not in acute distress, well cooperated during the physical. HEENT: Conjunctive are pink, sclerae clear, no icterus, pupil is equal in both sides, reactive to light, no ear discharge, no pharyngeal erythema or an edema, mouth and lips are dry. Neck: Supple, no JVD, no lymphadenopathy and thyromegaly. Lungs:Equal air entry on both lungs, no additional sounds Heart: S1-S2 regular sinus rhythm and, regular rate, no gallops, no rubs, no murmurs Abdomen: No visible peristalsis, Bowel sounds present on auscultation, soft, nontender, no guarding, no rigidity Extremities: edematous and tingling and numbness left leg with 2 x 4 cm oval shaped open ulcer over the ventral surface of calf with some dark tissue around the wound with serosanguinous discharge. No obvious deformities, no pitting edema bilaterally, capillary refill intact, able to wiggle toes both sides, peripheral pulsations are intact on both sides MARKETING MANAGER: No focal neurological deficits, no motor and sensory weakness in all 4 extremities, could move all 4 extremities Musculoskeletal: No joint swelling, deformities, inflammations, and no scoliosis and back tenderness Skin: No active skin lesions and rashes Assessment Assessment A 59 years old undomiciled male w/ PMH of HTN, poly substance abuses (fentanyl, amphetamine, methadone) and Hx of MRSA on his back presented w/ progressively worsening pain, swelling , and tenderness in his left lower extremity which was unhealed since this year July although treated w/ multiple different ABx. Plan Plan # Left lower extremity cellulitis, R/O osteomyelitis # History of MRSA infection and allergy to vancomycin - continue wound care -ruled out osteomyelitis with MRI left lower extremities with elevated CRP and ESR -continue IV Zosyn and PO Zyvox - day 2 - Blood C&S showed negative so far -Pain control, to use acetaminophen as much as possible # MONTSERRAT from pre renal with renal tubular statsis -FeNa 0.4% -Cr gradually trending down, monitor I's and O's and RFT daily -Continue w/ IV NS 50 ml/ hr # Poly substance abuse (fentanyl, methamphetamine, methadone) -continue methadone supply as a same dosage from his usual distributed clinic -social media specialist/substance abuse navigator was applied including social media specialist and placement issue CODE STATUS: Full code DVT prophylaxis: Sc heparin Analgesia/sedation: Acetaminophen, ketorolac Lines/tubes: Peripheral IV GI prophylaxis: None Nutrition: Regular Prognosis: Guarded Disposition: Continue medical management including wound care, IV/p.o. antibiotics, social media specialist/substance navigation, PT eval and DC plan. Resident attestation: Patient was seen, examined and discussed with attending , Dr. Doris BILLY MD Internal Medicine Resident, PGY2 [facility] Date of Service: Dec 25, 2024 Billing Provider: ROSLYN CALDWELL MD, TIN, RES Dec 25, 2024 18:42
[2024-12-25 20:48] VITALS: RESP 17; O2SAT 97
[2024-12-25] MEDS: normal saline 1000ml 1,000 ML IV SCH (22:25)
[2024-12-25] MEDS: lisinopril 10 MG tablet PO SCH (22:30)
[2024-12-25] MEDS: ketorolac trometh 15mg/ml vial 15 MG/ML ML IV PRN (22:50)
[2024-12-25] MEDS ORDERED: methadone 10mg tablet PO SCH (23:05)
[2024-12-25] MEDS: methadone 10mg tablet PO ONE (23:48)
[2024-12-26 05:16] LABS: ALANINE AMINOTRANSFERASE 22 U/L (12-78); ALBUMIN 2.4 G/DL (3.4-5.0); ALBUMIN/GLOBULIN RATIO 0.6 (1.1-1.5); ALKALINE PHOSPHATASE 56 IU/L (46-116); ANION GAP 2 (8-16); ASPARTATE AMINO TRANSFERASE 17 U/L (10-37); BILIRUBIN,TOTAL 0.3 MG/DL (0.1-1.0); BLOOD UREA NITROGEN 27 MG/DL (7-18); CALCIUM 8.5 MG/DL (8.5-10.1); CHLORIDE 108 MMOL/L (99-107); CREATININE 1.23 MG/DL (0.60-1.10); GLUCOSE 87 MG/DL (70-104); POTASSIUM 5.2 MMOL/L (3.5-5.1); PRO BRAIN NATRIURETIC PEPTIDE 1158 PG/ML (0-125); SODIUM 138 MMOL/L (135-145); TOTAL CARBON DIOXIDE 28.5 MMOL/L (24-32); TOTAL PROTEIN 6.3 G/DL (6.4-8.2); eCRCL 72 ML/MIN; eGFR 60 ML/MIN
[2024-12-26 05:24] LABS: BASOPHILS % (AUTO) 0.3 % (0-1); EOSINOPHILS # (AUTO) 0.3 X10'3 (0-0.9); EOSINOPHILS % (AUTO) 5.7 % (0-6); HEMATOCRIT 27.3 % (42.0-52.0); HEMOGLOBIN 9.1 g/dl (14.0-17.9); LYMPHOCYTES # (AUTO) 1.5 X10'3 (1.1-4.8); LYMPHOCYTES % (AUTO) 29.1 % (21-51); MEAN CORPUSCULAR HEMOGLOBIN 28.6 PG (27.0-31.0); MEAN CORPUSCULAR HGB CONC 33.1 g/dL (33.0-36.5); MEAN CORPUSCULAR VOLUME 86.3 FL (78-98); MEAN PLATELET VOLUME 8.8 FL (7.4-10.4); MONOCYTES # (AUTO) 0.5 X10'3 (0-0.9); MONOCYTES % (AUTO) 9.6 % (2-12); NEUTROPHILS # (AUTO) 2.8 X10'3 (1.8-7.7); NEUTROPHILS % (AUTO) 55.3 % (42-75); PLATELET COUNT 157 X10'3 (140-440); RED BLOOD COUNT 3.17 X10'6 (4.70-6.10); RED CELL DISTRIBUTION WIDTH 15.4 % (11.5-14.5); WHITE BLOOD COUNT 5.1 X10'3 (4.5-11.0)
[2024-12-26 06:00] LABS: HEMOGLOBIN A1C 5.6 % (4.5-6.2)
[2024-12-26 06:49] VITALS: BP 115/67; PULSE 61; RESP 19; TEMP 98.3; O2SAT 96
[2024-12-26] MEDS: lisinopril 20mg tablet PO SCH (09:40)
[2024-12-26 10:00] VITALS: BP 136/66; PULSE 61; RESP 16; TEMP 98.1; O2SAT 97
[2024-12-26] MEDS ORDERED: LACT1CAP26 PO (12:39)
[2024-12-26] MEDS ORDERED: LINE600T12 PO (12:39)
[2024-12-26] MEDS ORDERED: IBUP-1984 PO (12:43)
[2024-12-26] MEDS: JUVEN Smoothie Arginine/Glut./Ca2+Bmb (Juven 19.3pkt) 240ml cup PO SCH (13:01)
[2024-12-26] MEDS ORDERED: GADOTERATE MEGLUMINE 7.5 MMOL/15 ML VIAL IV ONE (15:28)
[2024-12-26 16:23] VITALS: RESP 16
[2024-12-26] MEDS ORDERED: KAY15L PO (16:24)
--- NOTE | 2024-12-26 16:27 | DISCHARGE SUMMARY-Residence ---
Discharge Summary Providers to CC Resident Creating Document: JIL BILLY RES ~ Discharge Summary Admission Diagnosis: LEFT LOWER EXTREMITY CELLULITIS Hospital Course DATE OF ADMISSION: 12/24/2024 DATE OF DISCHARGE: 12/26/2024 Discharge Diagnosis\Comment: # Left lower extremity cellulitis, R/O osteomyelitis # History of MRSA infection and allergy to vancomycin # MONTSERRAT from pre renal with renal tubular statsis- normalizing # Poly substance abuse (fentanyl, methamphetamine, methadone) Operations\Procedures: None Consultants: wound care team Complications: None Condition on DC: Stable New Medications: Ibuprofen* (Motrin*) 400 Mg Tablet 400 MG PO Q12H for 20 Days, #30 TAB Lactobacillus Rhamnosus (Culturelle) 10 Billion Cell Capsule 1 CAP PO DAILY for 14 Days, #14 CAP 0 Refills Linezolid (Zyvox) 600 Mg Tablet 1 TAB PO Q12H for 10 Days, #20 TAB with food Sodium Polystyrene Sulfonate 15GM/60ML Susp* (Kayexalate 15GM/60ML Suspension*) 15 Gm/60 Ml Susp 60 ML PO DAILY for 3 Days, #180 ML Continued Medications: Buprenorphine HCl/Naloxone HCl (Buprenorphin-Naloxon 8-2 mg Tb) 1 Each Tab.subl 1 TAB SL TID for 2 Days, #6 TAB Clotrimazole (Clotrimazole) 30 Gm Cream..g. 1 APPLIC TOP Q12H for 7 Days, #30 GM 0 Refills apply to affected area(s) Cyclobenzaprine* (Cyclobenzaprine*) 10 Mg Tablet 1 TAB PO Q8H for muscle spasms for 10 Days, #30 TAB 0 Refills Diclofenac Sodium (Voltaren Arthritis Pain) 20 Gm Gel..gram. 1 APPLIC TOP BID, #1 TUBE Famotidine (Pepcid Ac) 10 Mg Tablet 1 TAB PO DAILY for 30 Days, #30 TAB 0 Refills Hydrocortisone (hydrocortisone 1% cream) 1 Applic Cream..g. 1 APPLIC TOP Q12H for dermatitis for 10 Days, #60 GM Hydroxyzine Hcl* (Atarax*) Unknown Strength Tablet Unknown Dose PO DAILY, TAB Lisinopril* (Lisinopril*) 40 Mg Tablet 1 TAB PO DAILY for 90 Days, #90 TAB Loratadine (Claritin) 10 Mg Tablet 1 TAB PO DAILY for congestion for 30 Days, #30 TAB 0 Refills Methadone Hcl* (Dolophine*) 10 Mg Tablet 149 MG PO DAILY, TAB Discontinued Medications: Cetirizine HCl (Cetirizine HCl) 10 Mg Tablet 1 TAB PO DAILY for allergy symptoms for 30 Days, #30 TAB 0 Refills Clindamycin HCl (Clindamycin HCl CAPSULE) 150 Mg Capsule 1 CAP PO TID, #30 CAP Diphenhydramine HCl (Benadryl) 25 Mg Capsule 1 CAP PO HS for 30 Days, #30 CAP 0 Refills Ibuprofen (Ibuprofen) 600 Mg Tablet 1 TAB PO Q8H for 10 Days, #30 TAB Ibuprofen (Ibuprofen) 800 Mg Tablet 1 TAB PO Q8H for 10 Days, #30 TAB Lisinopril (Lisinopril) 10 Mg Tablet 1 TAB PO DAILY for 30 Days, #30 TAB 0 Refills Discharge Summary: A 59 years old undomiciled male w/ PMH of HTN, poly substance abuses (fentanyl, amphetamine, methadone) and Hx of MRSA on his back presented w/ progressively worsening pain, swelling , and tenderness in his left lower extremity which was unhealed since this year July although treated w/ multiple different ABx. Hospital course: Patient was admitted to the hospital for his chronic nonhealing left cuff open wound for further management including wound care and IV antibiotics. The MRI left lower extremities were ordered with elevated CRP and ESR with the concern of osteomyelitis showed Cellulitis without evidence of osteomyelitis or soft tissue abscess. We gave him IV Zosyn and PO Zyvox for total day 3 (confirmed with patient for his Vancomycin allergy in which he only had the veins collapsed when he receive the extensive amount of Vancomycin). Blood C&S showed negative. Pain was controlled well with acetaminophen and his usual prescribed dosage of methadone from the methadone clinic. FeNa 0.4%, and pre renal cause of renal tubular stasis led to MONTSERRAT with Cr gradually trending down, monitored I's and O's and RFT daily. We have given IV NS 50 ml/ hr. We continued methadone supply as a same dosage from his usual distributed clinic. central services tech/substance abuse navigator was applied including medical social consultant and placement issue. DVT prophylaxis was achieved with the sc heparin 5000 units b.i.d. throughout his stay. He was evaluated by the physical therapy, recommended to home discharge independently. Today, all of his labs were reviewed WNL including WBC 5.1, hemoglobin 9.1, hematocrit 27.3, platelets 157, serum sodium 138, BUN 27, cre atinine 1.23. All of his concerns and questions were addressed and answered with the best knowledge of our team before he was discharged. All of his vitals were stable at the moment with temp 98.3 F, WA 61/minute, RR 90/minute, BP 115/67 mm Hg, pulse oximetry 96% on room air. On exam, General: Well alert, well oriented, not confused, not agitated, not in acute distress, well cooperated during the physical. HEENT: Conjunctive are pink, sclerae clear, no icterus, pupil is equal in both sides, reactive to light, no ear discharge, no pharyngeal erythema or an edema, mouth and lips are dry. Neck: Supple, no JVD, no lymphadenopathy and thyromegaly. Lungs:Equal air entry on both lungs, no additional sounds Heart: S1-S2 regular sinus rhythm and, regular rate, no gallops, no rubs, no murmurs Abdomen: No visible peristalsis, Bowel sounds present on auscultation, soft, nontender, no guarding, no rigidity Extremities: edematous and tingling and numbness left leg with 2 x 4 cm oval shaped open ulcer over the ventral surface of calf with some dark tissue around the wound with serosanguinous discharge. 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 -strongly encouraged to stop using any illicit drugs, smoking cigarettes and heavy alcohol drinking -continue taking Kayexalate solution once daily for three days and rechecked CMP was PCP in week after discharge. You have a wound care appointment January 03 at 12:30pm. [facility] Outpatient Wound Care - [phone]. Please show up 30 minutes early to complete paperwork. Resident MD attestation: Patient was seen, examined and discussed with attending MD, Dr. Doris BILLY MD Internal Medicine Resident, PGY2 [facility] *Problems/Diagnosis: (1) Wound Status: Chronic (2) Infected wound Status: Chronic (3) Chronic wound of extremity Status: Chronic Total Time Spent on D/C: > 30 Minutes Date of Service: Dec 26, 2024 Billing Provider: ROSLYN CALDWELL MD, TIN, RES Dec 26, 2024 16:12
[2024-12-26] MEDS: methadone 10mg tablet PO SCH (16:28)
== END 2024-12-26 17:23 | disposition home or self-care (01) | DRG 383 ==
LOC: ER 20:28 → ED HOLD 23:24 → ORTHO 4S 12-25 17:02
PROVIDERS: ADMIT Internal Medicine; ATTEND Family Medicine
DX: L03.116 Cellulitis of left lower limb (principal); N17.0 Acute kidney failure with tubular necrosis; F19.10 Other psychoactive substance abuse, uncomplicated; F32.A Depression, unspecified; I10 Essential (primary) hypertension; S81.802A Unspecified open wound, left lower leg, initial encounter; X58.XXXA Exposure to other specified factors, initial encounter; Y93.89 Activity, other specified; Y92.89 Other specified places as the place of occurrence of the external cause; Y99.8 Other external cause status; Z79.899 Other long term (current) drug therapy; Z88.1 Allergy status to other antibiotic agents; Z88.5 Allergy status to narcotic agent; Z88.8 Allergy status to other drugs, medicaments and biological substances; Z59.00 Homelessness unspecified
CPT/HCPCS: 36415; 73590; 73720; 80053; 80305; 81003; 82550; 82570; 83036; 83605; 83880; 83930; 83935; 84145; 84300; 84484; 85025; 85651; 86140; 87040; 87081; 93971; 96365; 96375; 97116; 97161; 99285; A4649; A6196; A6253; A6258; A6446; A6449; A9575; G0378; J1644; J1885; J2020; J2543; J7030